=== PATIENT | female | born 1985 | race Caucasian/White ===

== ENCOUNTER 2017-08-29 09:43 | Emergency (ER) | payer BC ==
[2017-08-29] MEDS ORDERED: Ondansetron 4 MG/2 ML SDV IVPUSH ONE (09:53)
[2017-08-29] MEDS ORDERED: Sodium Chloride 0.9% 1,000 ML IV ONE (09:53)
[2017-08-29] MEDS ORDERED: Ketorolac 30 MG/ML SDV IVPUSH ONE (09:53)
--- NOTE | 2017-08-29 09:53 | EDM.PDOC ---
ED HPI GENERAL MEDICAL PROBLEM - General Chief Complaint: Abdominal Pain Stated Complaint: abdominal pain Time Seen by Provider: 08/29/17 09:53 Source of Information: Reports: Patient - History of Present Illness INITIAL COMMENTS - FREE TEXT/NARRATIVE: HISTORY AND PHYSICAL: History of present illness: []Patient presents with colicky abdominal pain that began this morning no fever nausea vomiting chills sweats she has had 1 bowel movement earlier today she states was slightly constipated no chest pain shortness breath headache dizziness palpitation no bowel or urine symptoms Previous cholecystectomy Review of systems: As per history of present illness and below otherwise all systems reviewed and negative. Past medical history: As per history of present illness and as reviewed below otherwise noncontributory. Surgical history: As per history of present illness and as reviewed below otherwise noncontributory. Social history: No reported history of drug or alcohol abuse. Family history: As per history of present illness and as reviewed below otherwise noncontributory. Physical exam: HEENT: Atraumatic, normocephalic, pupils reactive, negative for conjunctival pallor or scleral icterus, mucous membranes moist, throat clear, neck supple, nontender, trachea midline. Lungs: Clear to auscultation, breath sounds equal bilaterally, chest nontender. Heart: S1S2, regular, negative for clicks, rubs, or JVD. Abdomen: Soft, nondistended, nontender. Negative for masses or hepatosplenomegaly. Negative for costovertebral tenderness. Pelvis: Stable nontender. Genitourinary: Deferred. Rectal: Deferred. Extremities: Atraumatic, negative for cords or calf pain. Neurovascular unremarkable. Neuro: Awake, alert, oriented. Cranial nerves II through XII unremarkable. Cerebellum unremarkable. Motor and sensory unremarkable throughout. Exam nonfocal. Diagnostics: []Lab as below Flat and upright Therapeutics: []1 L normal saline Toradol 30 mg IV Zofran 8 mg IV Reglan 10 mg IV Simethicone 120 mg chewable Impression: []Colicky abdominal pain Definitive disposition and diagnosis as appropriate pending reevaluation and review of above. Lower Abdominal Pain Score (Numeric/FACES): 7 - Related Data Allergies Allergy/AdvReac Type Severity Reaction Status Date / Time latex Allergy Rash Verified 05/18/16 22:44 Home Meds: Home Meds Orphenadrine [Norflex] 100 mg PO PRN 08/29/17 [History] Past Medical History HEENT History: Reports: Impaired Vision Other HEENT History: stated 8 surgeries on ears Cardiovascular History: Reports: None Respiratory History: Reports: None Gastrointestinal History: Reports: None Genitourinary History: Reports: Renal Calculus Neurological History: Reports: Migraines Psychiatric History: Reports: None - Infectious Disease History Infectious Disease History: Reports: Chicken Pox - Past Surgical History HEENT Surgical History: Reports: Naso-Sinus Surgery GI Surgical History: Reports: Cholecystectomy, Hernia, Abdominal, Hernia Repair/ Other Social & Family History - Family History Family Medical History: Noncontributory - Tobacco Use Smoking Status *Q: Never Smoker Second Hand Smoke Exposure: No - Caffeine Use Caffeine Use: Reports: Coffee Caffeine Use Comment: 1/day - Alcohol Use Days Per Week of Alcohol Use: 1 - Recreational Drug Use Recreational Drug Use: No Drug Use in Last 12 Months: Yes ED ROS GENERAL - Review of Systems Review Of Systems: ROS reveals no pertinent complaints other than HPI. ED EXAM, GENERAL - Physical Exam Exam: See Below Course - Vital Signs Last Recorded V/S: Last Vital Signs Temp 36.9 C 08/29/17 10:02 Pulse 99 08/29/17 10:02 Resp 20 08/29/17 10:02 BP 137/94 H 08/29/17 10:02 Pulse Ox 99 08/29/17 10:02 - Orders/Labs/Meds Orders: Active Orders 24 hr Category Date Time Status CULTURE URINE [RM] Stat Lab 08/29/17 10:55 Ordered Labs: Laboratory Tests 08/29/17 08/29/17 08/29/17 Range/Units 09:59 09:59 10:13 WBC 7.64 (4.0-11.0) K/uL RBC 5.14 (4.30-5.90) M/uL Hgb 15.0 (12.0-16.0) g/dL Hct 44.2 (36.0-46.0) % MCV 86.0 (80.0-98.0) fL MCH 29.2 (27.0-32.0) pg MCHC 33.9 (31.0-37.0) g/dL RDW Std Deviation 41.4 (28.0-62.0) fl RDW Coeff of Farhana 13 (11.0-15.0) % Plt Count 285 (150-400) K/uL MPV 8.90 (7.40-12.00) fL Neut % (Auto) 56.5 (48.0-80.0) % Lymph % (Auto) 32.7 (16.0-40.0) % [place] % (Auto) 8.0 (0.0-15.0) % Eos % (Auto) 2.5 (0.0-7.0) % Baso % (Auto) 0.3 (0.0-1.5) % Neut # (Auto) 4.3 (1.4-5.7) K/uL Lymph # (Auto) 2.5 H (0.6-2.4) K/uL [place] # (Auto) 0.6 (0.0-0.8) K/uL Eos # (Auto) 0.2 (0.0-0.7) K/uL Baso # (Auto) 0.0 (0.0-0.1) K/uL Nucleated RBC % 0.0 /100WBC Nucleated RBCs # 0 K/uL Sodium 138 (136-146) mmol/L Potassium 3.9 (3.5-5.1) mmol/L Chloride 107 (98-110) mmol/L Carbon Dioxide 22 (21-31) mmol/L BUN 12 (6.0-23.0) mg/dL Creatinine 0.7 (0.6-1.5) mg/dL Est Cr Clr Drug Dosing 101.90 mL/min Estimated GFR (MDRD) > 60.0 ml/min Glucose 80 (60-110) mg/dL Calcium 9.5 (8.8-10.8) mg/dL Total Bilirubin 0.2 (0.1-1.5) mg/dL AST 20 (5-40) IU/L ALT 28 (8-54) IU/L Alkaline Phosphatase 66 (40-150) Total Protein 8.3 H (6.0-8.0) g/dL Albumin 4.4 (3.5-5.0) g/dL Globulin 3.9 H (2.0-3.5) g/dL Albumin/Globulin Ratio 1.1 L (1.3-2.8) Amylase 55 (10-90) U/L Lipase 34 (7-80) U/L Urine Color Urine Appearance Urine pH (5.0-8.0) Ur Specific [place] (1.001-1.035) Urine Protein (NEGATIVE) mg/dL Urine Glucose (UA) (NEGATIVE) mg/dL Urine Ketones (NEGATIVE) mg/dL Urine Occult Blood (NEGATIVE) Urine Nitrite (NEGATIVE) Urine Bilirubin (NEGATIVE) Urine Urobilinogen (<2.0) EU/dL Ur Leukocyte Esterase (NEGATIVE) Urine RBC (0-2/HPF) Urine WBC (0-5/HPF) Ur Epithelial Cells (NONE-FEW) Urine Bacteria (NEGATIVE) Urine HCG, Qual NEGATIVE (NEGATIVE) 08/29/17 Range/Units 10:13 WBC (4.0-11.0) K/uL RBC (4.30-5.90) M/uL Hgb (12.0-16.0) g/dL Hct (36.0-46.0) % MCV (80.0-98.0) fL MCH (27.0-32.0) pg MCHC (31.0-37.0) g/dL RDW Std Deviation (28.0-62.0) fl RDW Coeff of Farhana (11.0-15.0) % Plt Count (150-400) K/uL MPV (7.40-12.00) fL Neut % (Auto) (48.0-80.0) % Lymph % (Auto) (16.0-40.0) % [place] % (Auto) (0.0-15.0) % Eos % (Auto) (0.0-7.0) % Baso % (Auto) (0.0-1.5) % Neut # (Auto) (1.4-5.7) K/uL Lymph # (Auto) (0.6-2.4) K/uL [place] # (Auto) (0.0-0.8) K/uL Eos # (Auto) (0.0-0.7) K/uL Baso # (Auto) (0.0-0.1) K/uL Nucleated RBC % /100WBC Nucleated RBCs # K/uL Sodium (136-146) mmol/L Potassium (3.5-5.1) mmol/L Chloride (98-110) mmol/L Carbon Dioxide (21-31) mmol/L BUN (6.0-23.0) mg/dL Creatinine (0.6-1.5) mg/dL Est Cr Clr Drug Dosing mL/min Estimated GFR (MDRD) ml/min Glucose (60-110) mg/dL Calcium (8.8-10.8) mg/dL Total Bilirubin (0.1-1.5) mg/dL AST (5-40) IU/L ALT (8-54) IU/L Alkaline Phosphatase (40-150) Total Protein (6.0-8.0) g/dL Albumin (3.5-5.0) g/dL Globulin (2.0-3.5) g/dL Albumin/Globulin Ratio (1.3-2.8) Amylase (10-90) U/L Lipase (7-80) U/L Urine Color YELLOW Urine Appearance CLEAR Urine pH 6.0 (5.0-8.0) Ur Specific [place] <= 1.005 (1.001-1.035) Urine Protein NEGATIVE (NEGATIVE) mg/dL Urine Glucose (UA) NEGATIVE (NEGATIVE) mg/dL Urine Ketones NEGATIVE (NEGATIVE) mg/dL Urine Occult Blood TRACE-LYSED (NEGATIVE) Urine Nitrite NEGATIVE (NEGATIVE) Urine Bilirubin NEGATIVE (NEGATIVE) Urine Urobilinogen 0.2 (<2.0) EU/dL Ur Leukocyte Esterase NEGATIVE (NEGATIVE) Urine RBC 0-1 (0-2/HPF) Urine WBC 0-1 (0-5/HPF) Ur Epithelial Cells MODERATE (NONE-FEW) Urine Bacteria RARE (NEGATIVE) Urine HCG, Qual (NEGATIVE) Meds: Medications Discontinued Medications Generic Name Dose Route Start Last Admin Trade Name Freq PRN Reason Stop Dose Admin Sodium Chloride 1,000 mls @ 999 mls/hr 08/29/17 09:53 08/29/17 10:20 Normal Saline IV 08/29/17 10:53 999 mls/hr STAT ONE Administration Ketorolac Tromethamine 30 mg 08/29/17 09:53 08/29/17 10:15 Toradol IVPUSH 08/29/17 09:54 30 mg ONETIME ONE Administration Metoclopramide HCl 10 mg 08/29/17 11:42 Reglan IV 08/29/17 11:43 ONETIME ONE Ondansetron HCl 8 mg 08/29/17 09:53 08/29/17 10:14 Zofran IVPUSH 08/29/17 09:54 8 mg ONETIME ONE Administration Simethicone 160 mg 08/29/17 11:42 Simethicone PO 08/29/17 11:43 ONETIME ONE Departure - Departure Time of Disposition: 12:01 Disposition: Home, Self-Care 01 Condition: Good Clinical Impression: Abdominal pain Qualifiers: Abdominal location: left lower quadrant Qualified Code(s): R10.32 - Left lower quadrant pain - Discharge Information Referrals: Rachel Novak PA [Primary Care Provider] - Forms: ED Department Discharge Additional Instructions: Medication as prescribed Return if symptoms persist or worsen or fever vomiting chills sweats despite treatment Follow-up with primary care in 2 weeks sooner as needed clear liquid diet until symptoms resolve MiraLAX 17 g packet daily to clear bowels [facility] [address] [place] [id number] The following information is given to patients seen in the emergency department who are being discharged to home. This information is to outline your options for follow-up care. We provide all patients seen in our emergency department with a follow-up referral. The need for follow-up, as well as the timing and circumstances, are variable depending upon the specifics of your emergency department visit. If you don't have a primary care physician on staff, we will provide you with a referral. We always advise you to contact your personal physician following an emergency department visit to inform them of the circumstance of the visit and for follow-up with them and/or the need for any referrals to a consulting specialist. The emergency department will also refer you to a specialist when appropriate. This referral assures that you have the opportunity for follow-up care with a specialist. All of these measure are taken in an effort to provide you with optimal care, which includes your follow-up. Under all circumstances we always encourage you to contact your private physician who remains a resource for coordinating your care. When calling for follow-up care, please make the office aware that this follow-up is from your recent emergency room visit. If for any reason you are refused follow-up, please contact the [facility] emergency department at and asked to speak to the emergency department charge nurse. - My Orders Last 24 Hours: My Active Orders 08/29/17 10:55 CULTURE URINE [RM] Stat - Assessment/Plan Last 24 Hours: My Active Orders 08/29/17 10:55 CULTURE URINE [] Stat
[2017-08-29 10:37] LABS: CHLORIDE,CL 107 mmol/L (98-110); SODIUM,NA 138 mmol/L (136-146)
--- NOTE | 2017-08-29 11:22 | CR ---
EXAMINATION: Abdomen HISTORY: Pain COMPARISON: CT dated 07/13/2016 TECHNIQUE: AP and upright views of the abdomen FINDINGS: There is a moderate amount of stool and gas within the colon to the sigmoid region. No dila marina loops of small bowel. No organomegaly. No abnormal calcifications project over the kidneys. Cyste ctomy clips are noted. The visualized osseous structures appear normal. IMPRESSION: 1. Nonobstructive bowel gas pattern.
[2017-08-29] MEDS ORDERED: Metoclopramide 10 MG/2 ML SDV IV ONE (11:42)
[2017-08-29] MEDS ORDERED: Simethicone 80 MG Tab.Chew PO ONE (11:42)
[2017-08-29 12:11] VITALS: BP 107/68
== END 2017-08-29 12:40 | disposition home or self-care (01) ==
LOC: MW.ED 09:43
DX: R10.32 Left lower quadrant pain (principal); R10.84 Generalized abdominal pain; Z87.442 Personal history of urinary calculi; Z90.49 Acquired absence of other specified parts of digestive tract; Z98.890 Other specified postprocedural states; Z91.040 Latex allergy status
CPT/HCPCS: 36415; 74020; 80053; 81001; 81025; 82150; 83690; 85025; 87086; 96361; 96374; 96375; 99284; A9270; J1885; J2405; J2765; J7040; 99282

== ENCOUNTER 2018-01-10 18:07 | Emergency (ER) | payer BC ==
[2018-01-10 19:16] LABS: CHLORIDE,CL 104 mmol/L (98-110); SODIUM,NA 138 mmol/L (136-146)
--- NOTE | 2018-01-10 19:39 | EDM.PDOC ---
ED HPI GENERAL MEDICAL PROBLEM - General Chief Complaint: Abdominal Pain Stated Complaint: ABD PAIN Time Seen by Provider: 01/10/18 19:04 - History of Present Illness INITIAL COMMENTS - FREE TEXT/NARRATIVE: HISTORY AND PHYSICAL: History of present illness: Patient 33-year-old white female presents with a concern of abdominal pain patient has history of irritable bowel syndrome. She's had no fever chills nausea vomiting she is concerned about possible urinary tract infection she's had some mild UTI type symptoms. She denies vaginal discharge or irregular bleeding states she's had a hysterectomy. Review of systems: As per history of present illness and below otherwise all systems reviewed and negative. Past medical history: As per history of present illness and as reviewed below otherwise noncontributory. Surgical history: As per history of present illness and as reviewed below otherwise noncontributory. Social history: No reported history of drug or alcohol abuse. Family history: As per history of present illness and as reviewed below otherwise noncontributory. Physical exam: HEENT: Atraumatic, normocephalic, pupils reactive, negative for conjunctival pallor or scleral icterus, mucous membranes moist, throat clear, neck supple, nontender, trachea midline. Lungs: Clear to auscultation, breath sounds equal bilaterally, chest nontender. Heart: S1S2, regular, negative for clicks, rubs, or JVD. Abdomen: Soft, nondistended, no localized tenderness. Negative for masses or hepatosplenomegaly. Negative for costovertebral tenderness. Pelvis: Stable nontender. Genitourinary: Deferred. Rectal: Deferred. Extremities: Atraumatic, negative for cords or calf pain. Neurovascular unremarkable. Neuro: Awake, alert, oriented. Cranial nerves II through XII unremarkable. Cerebellum unremarkable. Motor and sensory unremarkable throughout. Exam nonfocal. Diagnostics: CBC CMP UA urine culture and sensitivity Therapeutics: None Impression: #1 abdominal pain history of irritable bowel syndrome #2 rule out UTI Definitive disposition and diagnosis as appropriate pending reevaluation and review of above. Left Upper Abdominal Pain Score (Numeric/FACES): 6 - Related Data Allergies Allergy/AdvReac Type Severity Reaction Status Date / Time latex Allergy Rash Verified 01/10/18 18:36 Home Meds: Home Meds Orphenadrine [Norflex] 100 mg PO ASDIRECTED PRN 08/29/17 [History] Past Medical History HEENT History: Reports: Impaired Vision Other HEENT History: stated 8 surgeries on ears Cardiovascular History: Reports: None Respiratory History: Reports: None Gastrointestinal History: Reports: None Genitourinary History: Reports: Renal Calculus [employer] History: Reports: Other (See Below) Other OB/BYN History: hysterectomy Neurological History: Reports: Migraines Psychiatric History: Reports: None - Infectious Disease History Infectious Disease History: Reports: Chicken Pox - Past Surgical History HEENT Surgical History: Reports: Naso-Sinus Surgery GI Surgical History: Reports: Cholecystectomy, Hernia, Abdominal, Hernia Repair/ Other Other Musculoskeletal Surgeries/Procedures:: Wrist surgery, reconstructive facial surgery Social & Family History - Family History Family Medical History: Noncontributory - Tobacco Use Smoking Status *Q: Never Smoker Second Hand Smoke Exposure: No - Caffeine Use Caffeine Use: Reports: Coffee Caffeine Use Comment: 1/day - Alcohol Use Days Per Week of Alcohol Use: 1 Number of Drinks Per Day: 2 Total Drinks Per Week: 2 - Recreational Drug Use Recreational Drug Use: No Drug Use in Last 12 Months: Yes ED ROS GENERAL - Review of Systems Review Of Systems: ROS reveals no pertinent complaints other than HPI. ED EXAM, GENERAL - Physical Exam Exam: See Below (See dictation) Course - Vital Signs Last Recorded V/S: Last Vital Signs Temp 36.4 C 01/10/18 18:30 Pulse 103 H 01/10/18 18:30 Resp 18 01/10/18 18:30 BP 166/111 H 01/10/18 18:30 Pulse Ox 97 01/10/18 18:30 - Orders/Labs/Meds Orders: Active Orders 24 hr Category Date Time Status CULTURE URINE [RM] Stat Lab 01/10/18 19:30 Received Labs: Laboratory Tests 01/10/18 01/10/18 01/10/18 Range/Units 18:46 18:46 19:30 WBC 7.99 (4.0-11.0) K/uL RBC 4.63 (4.30-5.90) M/uL Hgb 13.3 (12.0-16.0) g/dL Hct 39.3 (36.0-46.0) % MCV 84.9 (80.0-98.0) fL MCH 28.7 (27.0-32.0) pg MCHC 33.8 (31.0-37.0) g/dL RDW Std Deviation 40.3 (28.0-62.0) fl RDW Coeff of Farhana 13 (11.0-15.0) % Plt Count 288 (150-400) K/uL MPV 8.80 (7.40-12.00) fL Neut % (Auto) 54.9 (48.0-80.0) % Lymph % (Auto) 33.3 (16.0-40.0) % [place] % (Auto) 9.5 (0.0-15.0) % Eos % (Auto) 2.0 (0.0-7.0) % Baso % (Auto) 0.3 (0.0-1.5) % Neut # (Auto) 4.4 (1.4-5.7) K/uL Lymph # (Auto) 2.7 H (0.6-2.4) K/uL [place] # (Auto) 0.8 (0.0-0.8) K/uL Eos # (Auto) 0.2 (0.0-0.7) K/uL Baso # (Auto) 0.0 (0.0-0.1) K/uL Nucleated RBC % 0.0 /100WBC Nucleated RBCs # 0 K/uL Sodium 138 (136-146) mmol/L Potassium 4.1 (3.5-5.1) mmol/L Chloride 104 (98-110) mmol/L Carbon Dioxide 23 (21-31) mmol/L BUN 13 (6.0-23.0) mg/dL Creatinine 0.7 (0.6-1.5) mg/dL Est Cr Clr Drug Dosing 105.01 mL/min Estimated GFR (MDRD) > 60.0 ml/min Glucose 86 (60-110) mg/dL Calcium 9.1 (8.8-10.8) mg/dL Total Bilirubin 0.3 (0.1-1.5) mg/dL AST 21 (5-40) IU/L ALT 25 (8-54) IU/L Alkaline Phosphatase 54 (40-150) Total Protein 7.2 (6.0-8.0) g/dL Albumin 4.1 (3.5-5.0) g/dL Globulin 3.1 (2.0-3.5) g/dL Albumin/Globulin Ratio 1.3 (1.3-2.8) Lipase 17 (7-80) U/L Urine Color YELLOW Urine Appearance CLEAR Urine pH 6.0 (5.0-8.0) Ur Specific [place] 1.010 (1.001-1.035) Urine Protein NEGATIVE (NEGATIVE) mg/dL Urine Glucose (UA) NEGATIVE (NEGATIVE) mg/dL Urine Ketones NEGATIVE (NEGATIVE) mg/dL Urine Occult Blood NEGATIVE (NEGATIVE) Urine Nitrite NEGATIVE (NEGATIVE) Urine Bilirubin NEGATIVE (NEGATIVE) Urine Urobilinogen 0.2 (<2.0) EU/dL Ur Leukocyte Esterase TRACE (NEGATIVE) Urine RBC 0-1 (0-2/HPF) Urine WBC 0-1 (0-5/HPF) Ur Epithelial Cells RARE (NONE-FEW) Urine Bacteria RARE (NEGATIVE) Departure - Departure Time of Disposition: 19:59 Disposition: Home, Self-Care 01 Condition: Good Clinical Impression: Irritable bowel syndrome - Discharge Information Referrals: PCP,None [Primary Care Provider] - Forms: ED Department Discharge Additional Instructions: The following information is given to patients seen in the emergency department who are being discharged to home. This information is to outline your options for follow-up care. We provide all patients seen in our emergency department with a follow-up referral. The need for follow-up, as well as the timing and circumstances, are variable depending upon the specifics of your emergency department visit. If you don't have a primary care physician on staff, we will provide you with a referral. We always advise you to contact your personal physician following an emergency department visit to inform them of the circumstance of the visit and for follow-up with them and/or the need for any referrals to a consulting specialist. The emergency department will also refer you to a specialist when appropriate. This referral assures that you have the opportunity for followup care with a specialist. All of these measure are taken in an effort to provide you with optimal care, which includes your followup. Under all circumstances we always encourage you to contact your private physician who remains a resource for coordinating your care. When calling for followup care, please make the office aware that this follow-up is from your recent emergency room visit. If for any reason you are refused follow-up, please contact the [facility] emergency department at and asked to speak to the emergency department charge nurse. Continue current meds follow private medical doctor 1-2 days return as needed as discussed - My Orders Last 24 Hours: My Active Orders 01/10/18 19:30 CULTURE URINE [] Stat - Assessment/Plan Last 24 Hours: My Active Orders 01/10/18 19:30 CULTURE URINE [] Stat
[2018-01-10 20:18] VITALS: BP 147/97
== END 2018-01-10 20:14 | disposition home or self-care (01) ==
LOC: MW.ED 18:07
DX: K58.9 Irritable bowel syndrome, unspecified (principal); Z91.040 Latex allergy status
CPT/HCPCS: 36415; 80053; 81001; 83690; 85025; 87086; 99283

== ENCOUNTER 2018-11-29 11:28 | Emergency (ER) | payer BC ==
[2018-11-29] MEDS ORDERED: Ondansetron 4 MG Tab.DIS PO ONE (11:39)
[2018-11-29] MEDS ORDERED: HYDROmorphone 2 MG/ML SDV IM ONE (11:39)
--- NOTE | 2018-11-29 11:40 | EDM.PDOC ---
ED HPI GENERAL MEDICAL PROBLEM - General Chief Complaint: Headache Stated Complaint: MIGRAINE Time Seen by Provider: 11/29/18 11:29 Source of Information: Reports: Patient History Limitations: Reports: No Limitations - History of Present Illness INITIAL COMMENTS - FREE TEXT/NARRATIVE: History of present illness: []Patient started having difficulty urinating this morning as well as left flank pain. She tried to urinate several times but could not. She denies any blood in her urine. She has not had any fevers, chills, nausea, vomiting or abdominal pain. Patient has had a hysterectomy in the past and has had several UTIs that she states feels similar to this. Review of systems: As per history of present illness and below otherwise all systems reviewed and negative. Past medical history: As per history of present illness and as reviewed below otherwise noncontributory. Surgical history: As per history of present illness and as reviewed below otherwise noncontributory. Social history: No reported history of drug or alcohol abuse. Family history: As per history of present illness and as reviewed below otherwise noncontributory. Physical exam: General: Well developed, well nourished in NAD HEENT: Atraumatic, normocephalic, pupils reactive, negative for conjunctival pallor or scleral icterus, mucous membranes moist, throat clear, neck supple, no rigidity nontender, trachea midline. No sinus tenderness to palpation Lungs: Clear to auscultation, breath sounds equal bilaterally, chest nontender. Heart: S1S2, regular, negative for clicks, rubs, or JVD. Abdomen: NABS, Soft, nondistended, nontender. Negative for masses or hepatosplenomegaly. Negative for costovertebral tenderness. Pelvis: Stable nontender. Genitourinary: Deferred. Rectal: Deferred. Extremities: Atraumatic, negative for cords or calf pain. Neurovascular unremarkable. Neuro: Awake, alert, oriented. Cranial nerves II through XII unremarkable. Cerebellum unremarkable. Motor and sensory unremarkable throughout. Exam nonfocal. Skin:warm and dry Diagnostics: CT head negative Therapeutics: Dilaudid Zofran, Toradol ED Course: Improved Impression: Migraine headache Prescriptions: None Plan: Follow-up with primary care Definitive disposition and diagnosis as appropriate pending reevaluation and review of above. 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 (See Below) Other SAFETY LEADER History: hysterectomy Neurological History: Reports: Migraines Psychiatric History: Reports: None - Infectious Disease History Infectious Disease History: Reports: Chicken Pox - Past Surgical History HEENT Surgical History: Reports: Naso-Sinus Surgery GI Surgical History: Reports: Cholecystectomy, Hernia, Abdominal, Hernia Repair/ Other Other Musculoskeletal Surgeries/Procedures:: Wrist surgery, reconstructive facial surgery Social & Family History - Family History Family Medical History: Noncontributory - Caffeine Use Caffeine Use: Reports: Coffee Caffeine Use Comment: 1/day ED ROS GENERAL - Review of Systems Review Of Systems: ROS reveals no pertinent complaints other than HPI. - Physical Exam Exam: See Below (See history of present illness) Course - Vital Signs Last Recorded V/S: Last Vital Signs Temp 96.9 F 11/29/18 11:37 Pulse 103 H 11/29/18 12:55 Resp 18 11/29/18 12:55 BP 145/90 H 11/29/18 12:55 Pulse Ox 97 11/29/18 12:55 - Orders/Labs/Meds Orders: Active Orders 24 hr Category Date Time Status Head wo Cont [CT] Stat Exams 11/29/18 11:40 Taken Meds: Medications Discontinued Medications Generic Name Dose Route Start Last Admin Trade Name Freq PRN Reason Stop Dose Admin Hydromorphone HCl 1 mg 11/29/18 11:39 11/29/18 12:09 Dilaudid IM 11/29/18 11:40 Not Given ONETIME ONE Hydromorphone HCl 1 mg 11/29/18 12:06 11/29/18 12:07 Dilaudid IM 11/29/18 12:07 1 mg ONETIME ONE Administration Ketorolac Tromethamine 60 mg 11/29/18 12:48 Toradol IM 11/29/18 12:49 ONETIME ONE Ondansetron HCl 4 mg 11/29/18 11:39 11/29/18 12:08 Zofran Odt PO 11/29/18 11:40 4 mg ONETIME ONE Administration Departure - Departure Time of Disposition: 13:10 Disposition: Home, Self-Care 01 Condition: Good Clinical Impression: Migraine headache Qualifiers: Migraine type: unspecified Status migrainosus presence: without status migrainosus Intractability: not intractable Qualified Code(s): G43.909 - Migraine, unspecified, not intractable, without status migrainosus - Discharge Information *PRESCRIPTION DRUG MONITORING PROGRAM REVIEWED*: No *COPY OF PRESCRIPTION DRUG MONITORING REPORT IN PATIENT NETTE: No Referrals: PCP,None [Primary Care Provider] - Forms: ED Department Discharge Additional Instructions: The following information is given to patients seen in the emergency department who are being discharged to home. This information is to outline your options for follow-up care. We provide all patients seen in our emergency department with a follow-up referral. The need for follow-up, as well as the timing and circumstances, are variable depending upon the specifics of your emergency department visit. If you don't have a primary care physician on staff, we will provide you with a referral. We always advise you to contact your personal physician following an emergency department visit to inform them of the circumstance of the visit and for follow-up with them and/or the need for any referrals to a consulting specialist. The emergency department will also refer you to a specialist when appropriate. This referral assures that you have the opportunity for follow-up care with a specialist. All of these measure are taken in an effort to provide you with optimal care, which includes your follow-up. Under all circumstances we always encourage you to contact your private physician who remains a resource for coordinating your care. When calling for follow-up care, please make the office aware that this follow-up is from your recent emergency room visit. If for any reason you are refused follow-up, please contact the [facility] Emergency Department at and asked to speak to the emergency department charge nurse. [facility] [address] [place] [id number] - My Orders Last 24 Hours: My Active Orders 11/29/18 11:40 Head wo Cont [CT] Stat - Assessment/Plan Last 24 Hours: My Active Orders 11/29/18 11:40 Head wo Cont [CT] Stat
[2018-11-29] MEDS ORDERED: Ondansetron 4 MG Tab.DIS ONE (12:03)
[2018-11-29] MEDS ORDERED: HYDROmorphone 1 MG/ML Syringe ONE (12:04)
[2018-11-29] MEDS ORDERED: HYDROmorphone 1 MG/ML Syringe IM ONE (12:06)
[2018-11-29] MEDS ORDERED: Ketorolac 60 MG/2 ML SDV IM ONE (12:48)
[2018-11-29] MEDS ORDERED: Ketorolac 60 MG/2 ML SDV ONE (13:05)
[2018-11-29 13:36] VITALS: BP 133/85
--- NOTE | 2018-11-30 08:32 | CT ---
INDICATION: Migraine headache. Severe pain. COMPARISON: None available. TECHNIQUE: CT examination of the head was performed with 3 mm thick axial sections without intravenous contrast. Images were obtained from the vertex of the skull through the skull base, and I examined the images with the brain and bone windows. Please note that all CT scans at this facility use dose modulation, iterative reconstruction, and/or weight-based dosing when appropriate to reduce radiation dose to as low as reasonably achievable. FINDINGS: : The brain is normal in appearance for the patient`s age on today`s study, with no sign of mass lesion, mass effect, hemorrhage, or edema. The ventricles and sulci are normal in appearance for the patient`s age. The visualized portions of the orbits are normal in appearance. The visualized portions of the paranasal sinuses and mastoids are clear. The osseous structures are normal in their appearance with no sign of abnormality in the skull base or calvarium. IMPRESSION: NORMAL NONCONTRAST CT OF THE HEAD FOR THE PATIENT`S AGE. NOTHING SEEN TO CORRELATE WITH THE PATIENT`S SEVERE HEADACHE. Please note that all CT scans at this facility use dose modulation, iterative reconstruction, and/or weight-based dosing when appropriate to reduce radiation dose to as low as reasonably achievable. Dictated by Kennedy Izaguirre MD @ Nov 29 2018 12:38PM Signed by Dr. Kennedy Izaguirre @ Nov 29 2018 12:41PM
== END 2018-11-29 13:32 | disposition home or self-care (01) ==
LOC: MW.ED 11:28
DX: G43.909 Migraine, unspecified, not intractable, without status migrainosus (principal); Z91.040 Latex allergy status
CPT/HCPCS: 70450; 96372; 99284; A9270; J1170; J1885

== ENCOUNTER 2019-07-08 12:42 | Emergency (ER) | payer BC ==
[2019-07-08] MEDS ORDERED: diphenhydrAMINE 50 MG/ML SDV IVPUSH ONE (12:51)
[2019-07-08] MEDS ORDERED: Sodium Chloride 0.9% 1,000 ML IV ONE (12:51)
[2019-07-08] MEDS ORDERED: Metoclopramide 10 MG/2 ML SDV IV ONE (12:51)
[2019-07-08] MEDS ORDERED: Ondansetron 4 MG/2 ML SDV IVPUSH ONE (12:51)
[2019-07-08] MEDS ORDERED: Ketorolac 30 MG/ML SDV IVPUSH ONE (12:51)
--- NOTE | 2019-07-08 13:01 | EDM.PDOC ---
ED HPI GENERAL MEDICAL PROBLEM - General Chief Complaint: Headache Stated Complaint: MIGRAINE Time Seen by Provider: 07/08/19 12:43 Source of Information: Reports: Patient History Limitations: Reports: No Limitations - History of Present Illness INITIAL COMMENTS - FREE TEXT/NARRATIVE: HISTORY AND PHYSICAL: History of present illness: Patient is a 34-year-old female presents to the ED today with concern for migraine 4 days. Patient states she has a history of chronic migraines and that her migraine is not unusual for her. She rates it currently a 7 out of 10. She does express photophobia and throbbing in nature which is typical of her migraines. Patient states she's taken her rescue medications at home but it just hasn't quite worked for her. Patient states she's come to the ED and received a "cocktail" before which has improved her symptoms in the past. Patient states she does follow with her neurologist for her migraine treatments. Patient denies any new symptoms from her typical migraine or any other symptoms or concerns at this time. Patient denies any other health history. Patient denies fever, chills, chest pain, shortness of breath, or cough. Denies headache, neck stiff ness, change in vision, syncope, or near syncope. Denies nausea, vomiting, abdominal pain, diarrhea, constipation, or dysuria. Has not noted any blood in urine or stool. Patient has been eating and drinking appropriately. Review of systems: As per history of present illness and below otherwise all systems reviewed and negative. Past medical history: As per history of present illness and as reviewed below otherwise noncontributory. Surgical history: As per history of present illness and as reviewed below otherwise noncontributory. Social history: See social history for further information Family history: As per history of present illness and as reviewed below otherwise noncontributory. Physical exam: General: Patient is alert, oriented, and in no acute distress. Patient sitting comfortably on exam table. HEENT: Atraumatic, normocephalic, pupils equal and reactive bilaterally, negative for conjunctival pallor or scleral icterus, mucous membranes moist, TMs normal bilaterally, throat clear, neck supple, nontender, trachea midline. No drooling or trismus noted. No meningeal signs. No hot potato voice noted. Lungs: Clear to auscultation, breath sounds equal bilaterally, chest nontender. Heart: S1S2, regular rate and rhythm without overt murmur Abdomen: Soft, nondistended, nontender. Negative for masses or hepatosplenomegaly. Negative for costovertebral tenderness. Pelvis: Stable nontender. Genitourinary: Deferred. Rectal: Deferred. Skin: Intact, warm, dry. No lesions or rashes noted. Extremities: Atraumatic, negative for cords or calf pain. Neurovascular unremarkable. Neuro: Awake, alert, oriented. Cranial nerves II through XII unremarkable. Cerebellum unremarkable. Motor and sensory unremarkable throughout. Exam nonfocal. Notes: Discussed the importance for follow-up with a primary care provider and her neurologist in regards to her migraines. Voices understanding and is agreeable to plan of care. Denies any further questions or concerns at this time. Diagnostics: None Therapeutics: Saline, Zofran, Toradol, Reglan, Benadryl Prescription: None Impression: Migraine headache Plan: 1. You can alternate ibuprofen and Tylenol as directed for pain and discomfort. Encourage small but frequent sips of fluid to prevent dehydration. 2. Follow-up with a primary care provider and your neurologist as discussed and as scheduled. Return to the ED as needed and as discussed. Definitive disposition and diagnosis as appropriate pending reevaluation and review of above. 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: Other (See Below) Other POWERHOUSE ENGINEER History: hysterectomy Musculoskeletal History: Reports: None Neurological History: Reports: Migraines Psychiatric History: Reports: None Endocrine/Metabolic History: Reports: None Hematologic History: Reports: None Immunologic History: Reports: None Oncologic (Cancer) History: Reports: None Dermatologic History: Reports: None - Infectious Disease History Infectious Disease History: Reports: Chicken Pox - Past Surgical History HEENT Surgical History: Reports: Naso-Sinus Surgery Cardiovascular Surgical History: Reports: None Respiratory Surgical History: Reports: None GI Surgical History: Reports: Cholecystectomy, Hernia, Abdominal, Hernia Repair/ Other Female Surgical History: Reports: None Endocrine Surgical History: Reports: None Neurological Surgical History: Reports: None Musculoskeletal Surgical History: Reports: Other (See Below) Other Musculoskeletal Surgeries/Procedures:: Wrist surgery, reconstructive facial surgery Oncologic Surgical History: Reports: None Dermatological Surgical History: Reports: None Social & Family History - Family History Family Medical History: Noncontributory - Tobacco Use Smoking Status *Q: Never Smoker Second Hand Smoke Exposure: No - Caffeine Use Caffeine Use: Reports: Coffee Caffeine Use Comment: 1/day - Recreational Drug Use Recreational Drug Use: No ED ROS GENERAL - Review of Systems Review Of Systems: ROS reveals no pertinent complaints other than HPI. ED EXAM, GENERAL - Physical Exam Exam: See Below (see dictation) Course - Vital Signs Last Recorded V/S: Last Vital Signs Temp 36.4 C 07/08/19 12:47 Pulse 96 07/08/19 12:47 Resp 16 07/08/19 12:47 BP 155/108 H 07/08/19 12:47 Pulse Ox 98 07/08/19 12:47 - Orders/Labs/Meds Orders: Active Orders 24 hr Category Date Time Status Sodium Chloride 0.9% [Normal Saline] 1,000 ml Med 07/08/19 12:51 Active IV STAT Medication Orders Sodium Chloride (Normal Saline) 1,000 mls @ 999 mls/hr IV STAT ONE Stop: 07/08/19 13:51 Meds: Medications Generic Name Dose Route Start Last Admin Trade Name Freq PRN Reason Stop Dose Admin Sodium Chloride 1,000 mls @ 999 mls/hr 07/08/19 12:51 Normal Saline IV 07/08/19 13:51 STAT ONE Discontinued Medications Generic Name Dose Route Start Last Admin Trade Name Freq PRN Reason Stop Dose Admin Diphenhydramine HCl 50 mg 07/08/19 12:51 Benadryl IVPUSH 07/08/19 12:52 ONETIME ONE Ketorolac Tromethamine 30 mg 07/08/19 12:51 Toradol IVPUSH 07/08/19 12:52 ONETIME ONE Metoclopramide HCl 10 mg 07/08/19 12:51 Reglan IV 07/08/19 12:52 ONETIME ONE Ondansetron HCl 4 mg 07/08/19 12:51 Zofran IVPUSH 07/08/19 12:52 ONETIME ONE Departure - Departure Time of Disposition: 13:01 Disposition: Home, Self-Care 01 Clinical Impression: Migraine Qualifiers: Migraine type: unspecified Status migrainosus presence: without status migrainosus Intractability: not intractable Qualified Code(s): G43.909 - Migraine, unspecified, not intractable, without status migrainosus - Discharge Information Referrals: PCP,None [Primary Care Provider] - Additional Instructions: The following information is given to patients seen in the emergency department who are being discharged to home. This information is to outline your options for follow-up care. We provide all patients seen in our emergency department with a follow-up referral. The need for follow-up, as well as the timing and circumstances, are variable depending upon the specifics of your emergency department visit. If you don't have a primary care physician on staff, we will provide you with a referral. We always advise you to contact your personal physician following an emergency department visit to inform them of the circumstance of the visit and for follow-up with them and/or the need for any referrals to a consulting specialist. The emergency department will also refer you to a specialist when appropriate. This referral assures that you have the opportunity for follow-up care with a specialist. All of these measure are taken in an effort to provide you with optimal care, which includes your follow-up. Under all circumstances we always encourage you to contact your private physician who remains a resource for coordinating your care. When calling for follow-up care, please make the office aware that this follow-up is from your recent emergency room visit. If for any reason you are refused follow-up, please contact the [facility] Emergency Department at and asked to speak to the emergency department charge nurse. [facility] [address] [place] [address] [id number] [address] [id number] 1. You can alternate ibuprofen and Tylenol as directed for pain and discomfort. Encourage small but frequent sips of fluid to prevent dehydration. 2. Follow-up with a primary care provider and your neurologist as discussed and as scheduled. Return to the ED as needed and as discussed. - My Orders Last 24 Hours: My Active Orders 07/08/19 12:51 Sodium Chloride 0.9% [Normal Saline] 1,000 ml IV STAT - Assessment/Plan Last 24 Hours: My Active Orders 07/08/19 12:51 Sodium Chloride 0.9% [Normal Saline] 1,000 ml IV STAT
[2019-07-08 13:59] VITALS: BP 132/85
== END 2019-07-08 13:59 | disposition home or self-care (01) ==
LOC: MW.ED 12:42
DX: G43.909 Migraine, unspecified, not intractable, without status migrainosus (principal); Z91.040 Latex allergy status; Z87.442 Personal history of urinary calculi
CPT/HCPCS: 96361; 96374; 96375; 99283; J1200; J1885; J2405; J2765; J7040

== ENCOUNTER 2019-12-18 16:12 | Emergency (ER) | payer BC ==
[2019-12-18] MEDS ORDERED: Ondansetron 4 MG/2 ML SDV IVPUSH ONE (17:06)
[2019-12-18] MEDS ORDERED: Sodium Chloride 0.9% 1,000 ML IV ONE (17:06)
--- NOTE | 2019-12-18 17:17 | EDM.PDOC ---
ED HPI GENERAL MEDICAL PROBLEM - General Chief Complaint: Abdominal Pain Stated Complaint: STOMACK PAIN Time Seen by Provider: 12/18/19 16:21 Source of Information: Reports: Patient History Limitations: Reports: No Limitations - History of Present Illness INITIAL COMMENTS - FREE TEXT/NARRATIVE: HISTORY AND PHYSICAL: History of present illness: Patient is a 34-year-old female who presents to the ED today with concern of generalized weakness. Patient states she had a Mackenzie-en-Y gastric bypass on November 12 done at [facility] in [place]. Patient states that she had some allergic reactions to the medication following the surgery so was in the hospital for 5 days but denies any complications of the surgery itself. Patient states that since then she is had some issues with eating and drinking and does feel nauseous. Patient states that over the course of the past several days she feels weak and has not wanted to eat much food following the surgery. Patient does state she has some abdominal discomfort but she does not describe it as pain. Patient states she has eaten 1 protein shake to day which is in accordance to her meal plan following surgery. Patient states she does have a liver lesion which has been known since the surgery which she is following with her primary care provider. Patient denies fever, chills, chest pain, shortness of breath, or cough. Denies headache, neck stiff ness, change in vision, syncope, or near syncope. Denies nausea, vomiting, abdominal pain, diarrhea, constipation, or dysuria. Has not noted any blood in urine or stool. Review of systems: As per history of present illness and below otherwise all systems reviewed and negative. Past medical history: As per history of present illness and as reviewed below otherwise noncontributory. Surgical history: As per history of present illness and as reviewed below otherwise noncontributory. Social history: See social history for further information Family history: As per history of present illness and as reviewed below otherwise noncontributory. Physical exam: General: Patient is alert, oriented, and in no acute distress. Patient sitting comfortably on exam table but tired appearing. HEENT: Atraumatic, normocephalic, pupils equal and reactive bilaterally, negative for conjunctival pallor or scleral icterus, mucous membranes dry, TMs normal bilaterally, throat clear, neck supple, nontender, trachea midline. No drooling or trismus noted. No meningeal signs. No hot potato voice noted. Lungs: Clear to auscultation, breath sounds equal bilaterally, chest nontender. Heart: S1S2, regular rate and rhythm without overt murmur Abdomen: Incisions consistent with surgical history. No erythema or drainage of incision sites. Well healed. Soft, nondistended, nontender. Negative for masses or hepatosplenomegaly. Negative for costovertebral tenderness. Pelvis: Stable nontender. Genitourinary: Deferred. Rectal: Deferred. Skin: Intact, warm, dry. No lesions or rashes noted. Extremities: Atraumatic, negative for cords or calf pain. Neurovascular unremarkable. Neuro: Awake, alert, oriented. Cranial nerves II through XII unremarkable. Cerebellum unremarkable. Motor and sensory unremarkable throughout. Exam nonfocal. Notes: Patient able to tolerate po intake in the ED today. Discussed importance for follow-up with her primary care provider and the surgeon who performed her surgery. Voices understanding and is agreeable to plan of care. Denies any further questions or concerns at this time. Diagnostics: CBC, CMP, UA, Uhcg, Lipase, Abd/Pelvic CT Therapeutics: NS, Zofran Prescription: None Impression: Generalized weakness Dehydration, mild Plan: 1. Encourage small but frequent sips of fluid to prevent dehydration. 2. Follow-up with your primary care provider as well as the surgeon of your surgery as discussed. 3. Return to the ED as needed and as discussed. Definitive disposition and diagnosis as appropriate pending reevaluation and review of above. Abdominal Pain Score (Numeric/FACES): 4 - Related Data Allergies Allergy/AdvReac Type Severity Reaction Status Date / Time latex Allergy Rash Verified 12/18/19 16:33 Home Meds: Home Meds Ascorbic Acid [Vitamin C] 1,000 mg PO ASDIRECTED 12/18/19 [History] Metoclopramide [Reglan] 5 mg PO BEDTIME 12/18/19 [History] Omeprazole 20 mg PO ONETIME 12/18/19 [History] Past Medical History HEENT History: Reports: Impaired Vision Other HEENT History: stated 8 surgeries on ears Cardiovascular History: Reports: None Respiratory History: Reports: None Gastrointestinal History: Reports: None Genitourinary History: Reports: Renal Calculus CORE BAKER History: Reports: Other (See Below) Other CORE BAKER History: hysterectomy Musculoskeletal History: Reports: None Neurological History: Reports: Migraines Psychiatric History: Reports: None Endocrine/Metabolic History: Reports: None Hematologic History: Reports: None Immunologic History: Reports: None Oncologic (Cancer) History: Reports: None Dermatologic History: Reports: None - Infectious Disease History Infectious Disease History: Reports: None - Past Surgical History HEENT Surgical History: Reports: Naso-Sinus Surgery Cardiovascular Surgical History: Reports: None Respiratory Surgical History: Reports: None GI Surgical History: Reports: Bariatric Procedure, Cholecystectomy, Hernia, Abdominal, Hernia Repair/Other Female Surgical History: Reports: None Endocrine Surgical History: Reports: None Neurological Surgical History: Reports: None Musculoskeletal Surgical History: Reports: Other (See Below) Other Musculoskeletal Surgeries/Procedures:: Wrist surgery, reconstructive facial surgery Oncologic Surgical History: Reports: None Dermatological Surgical History: Reports: None Social & Family History - Family History Family Medical History: Noncontributory - Tobacco Use Smoking Status *Q: Never Smoker Second Hand Smoke Exposure: No - Caffeine Use Caffeine Use: Reports: None Caffeine Use Comment: 1/day - Recreational Drug Use Recreational Drug Use: No ED ROS GENERAL - Review of Systems Review Of Systems: Comprehensive ROS is negative, except as noted in HPI. ED EXAM, GENERAL - Physical Exam Exam: See Below (see dictation) Course - Vital Signs Last Recorded V/S: Last Vital Signs Temp 97.3 F 12/18/19 16:35 Pulse 67 12/18/19 17:38 Resp 16 12/18/19 17:38 BP 105/75 12/18/19 18:12 Pulse Ox 99 12/18/19 17:38 - Orders/Labs/Meds Labs: Laboratory Tests 12/18/19 12/18/19 12/18/19 Range/Units 16:31 16:31 17:25 WBC 7.53 (4.0-11.0) K/uL RBC 4.83 (4.30-5.90) M/uL Hgb 13.6 (12.0-16.0) g/dL Hct 40.2 (36.0-46.0) % MCV 83.2 (80.0-98.0) fL MCH 28.2 (27.0-32.0) pg MCHC 33.8 (31.0-37.0) g/dL RDW Std Deviation 46.5 (28.0-62.0) fl RDW Coeff of Farhana 15 (11.0-15.0) % Plt Count 278 (150-400) K/uL MPV 9.70 (7.40-12.00) fL Neut % (Auto) 54.5 (48.0-80.0) % Lymph % (Auto) 32.3 (16.0-40.0) % Shannon % (Auto) 10.0 (0.0-15.0) % Eos % (Auto) 2.8 (0.0-7.0) % Baso % (Auto) 0.4 (0.0-1.5) % Neut # (Auto) 4.1 (1.4-5.7) K/uL Lymph # (Auto) 2.4 (0.6-2.4) K/uL Shannon # (Auto) 0.8 (0.0-0.8) K/uL Eos # (Auto) 0.2 (0.0-0.7) K/uL Baso # (Auto) 0.0 (0.0-0.1) K/uL Nucleated RBC % 0.0 /100WBC Nucleated RBCs # 0 K/uL Sodium (136-145) mmol/L Potassium (3.5-5.1) mmol/L Chloride (98-107) mmol/L Carbon Dioxide (21.0-32.0) mmol/L BUN (7.0-18.0) mg/dL Creatinine (0.6-1.0) mg/dL Est Cr Clr Drug Dosing mL/min Estimated GFR (MDRD) ml/min Glucose (74-106) mg/dL Calcium (8.5-10.1) mg/dL Total Bilirubin (0.2-1.0) mg/dL AST (15-37) IU/L ALT (14-63) IU/L Alkaline Phosphatase (46-116) U/L Total Protein (6.4-8.2) g/dL Albumin (3.4-5.0) g/dL Globulin (2.6-4.0) g/dL Albumin/Globulin Ratio (0.9-1.6) Lipase (73-393) U/L Urine Color YELLOW Urine Appearance CLEAR Urine pH 6.0 (5.0-8.0) Ur Specific [place] 1.015 (1.001-1.035) Urine Protein NEGATIVE (NEGATIVE) mg/dL Urine Glucose (UA) NEGATIVE (NEGATIVE) mg/dL Urine Ketones >=80 (NEGATIVE) mg/dL Urine Occult Blood NEGATIVE (NEGATIVE) Urine Nitrite NEGATIVE (NEGATIVE) Urine Bilirubin NEGATIVE (NEGATIVE) Urine Urobilinogen 0.2 (<2.0) EU/dL Ur Leukocyte Esterase NEGATIVE (NEGATIVE) Urine HCG, Qual NEGATIVE (NEGATIVE) 12/18/19 Range/Units 17:25 WBC (4.0-11.0) K/uL RBC (4.30-5.90) M/uL Hgb (12.0-16.0) g/dL Hct (36.0-46.0) % MCV (80.0-98.0) fL MCH (27.0-32.0) pg MCHC (31.0-37.0) g/dL RDW Std Deviation (28.0-62.0) fl RDW Coeff of Farhana (11.0-15.0) % Plt Count (150-400) K/uL MPV (7.40-12.00) fL Neut % (Auto) (48.0-80.0) % Lymph % (Auto) (16.0-40.0) % Shannon % (Auto) (0.0-15.0) % Eos % (Auto) (0.0-7.0) % Baso % (Auto) (0.0-1.5) % Neut # (Auto) (1.4-5.7) K/uL Lymph # (Auto) (0.6-2.4) K/uL Shannon # (Auto) (0.0-0.8) K/uL Eos # (Auto) (0.0-0.7) K/uL Baso # (Auto) (0.0-0.1) K/uL Nucleated RBC % /100WBC Nucleated RBCs # K/uL Sodium 141 (136-145) mmol/L Potassium 3.1 L (3.5-5.1) mmol/L Chloride 106 (98-107) mmol/L Carbon Dioxide 22.0 (21.0-32.0) mmol/L BUN 8 (7.0-18.0) mg/dL Creatinine 0.5 L (0.6-1.0) mg/dL Est Cr Clr Drug Dosing 134.32 mL/min Estimated GFR (MDRD) > 60.0 ml/min Glucose 82 (74-106) mg/dL Calcium 8.5 (8.5-10.1) mg/dL Total Bilirubin 0.3 (0.2-1.0) mg/dL AST 32 (15-37) IU/L ALT 75 H (14-63) IU/L Alkaline Phosphatase 73 (46-116) U/L Total Protein 7.0 (6.4-8.2) g/dL Albumin 3.4 (3.4-5.0) g/dL Globulin 3.6 (2.6-4.0) g/dL Albumin/Globulin Ratio 0.9 (0.9-1.6) Lipase 133 (73-393) U/L Urine Color Urine Appearance Urine pH (5.0-8.0) Ur Specific [place] (1.001-1.035) Urine Protein (NEGATIVE) mg/dL Urine Glucose (UA) (NEGATIVE) mg/dL Urine Ketones (NEGATIVE) mg/dL Urine Occult Blood (NEGATIVE) Urine Nitrite (NEGATIVE) Urine Bilirubin (NEGATIVE) Urine Urobilinogen (<2.0) EU/dL Ur Leukocyte Esterase (NEGATIVE) Urine HCG, Qual (NEGATIVE) Meds: Medications Discontinued Medications Generic Name Dose Route Start Last Admin Trade Name Freq PRN Reason Stop Dose Admin Sodium Chloride 1,000 mls @ 999 mls/hr 12/18/19 17:06 12/18/19 17:34 Normal Saline IV 12/18/19 18:06 999 mls/hr BOLUS ONE Administration Iopamidol 100 ml 12/18/19 18:45 12/18/19 18:45 Isovue-370 (76%) IVPUSH 12/18/19 18:46 100 ml ONETIME STA Administration Ondansetron HCl 4 mg 12/18/19 17:06 12/18/19 17:35 Zofran IVPUSH 12/18/19 17:07 4 mg ONETIME ONE Administration Departure - Departure Time of Disposition: 19:04 Disposition: Home, Self-Care 01 Clinical Impression: Dehydration, Generalized weakness - Discharge Information Referrals: Shefali Wilson TEST DESIGN ENGINEER [Primary Care Provider] - Forms: ED Department Discharge Additional Instructions: The following information is given to patients seen in the emergency department who are being discharged to home. This information is to outline your options for follow-up care. We provide all patients seen in our emergency department with a follow-up referral. The need for follow-up, as well as the timing and circumstances, are variable depending upon the specifics of your emergency department visit. If you don't have a primary care physician on staff, we will provide you with a referral. We always advise you to contact your personal physician following an emergency department visit to inform them of the circumstance of the visit and for follow-up with them and/or the need for any referrals to a consulting specialist. The emergency department will also refer you to a specialist when appropriate. This referral assures that you have the opportunity for follow-up care with a specialist. All of these measure are taken in an effort to provide you with optimal care, which includes your follow-up. Under all circumstances we always encourage you to contact your private physician who remains a resource for coordinating your care. When calling for follow-up care, please make the office aware that this follow-up is from your recent emergency room visit. If for any reason you are refused follow-up, please contact the [facility] at and asked to speak to the emergency department charge nurse. [facility] [address] [place] [address] [facility] [address] [place] [address] 1. Encourage small but frequent sips of fluid to prevent dehydration. 2. Follow-up with your primary care provider as well as the surgeon of your surgery as discussed. 3. Return to the ED as needed and as discussed. Sepsis Event Note - Evaluation Sepsis Screening Result: No Definite Risk - Focused Exam Vital Signs: Vital Signs Temp Pulse Resp BP Pulse Ox 12/18/19 18:12 105/75 12/18/19 17:38 67 16 105/62 99 12/18/19 16:35 97.3 F 88 16 149/93 H 98 Date Exam was Performed: 12/18/19 Time Exam was Performed: 19:02
[2019-12-18 17:58] LABS: BLOOD UREA NITROGEN,BUN 8 mg/dL (7.0-18.0); CHLORIDE,CL 106 mmol/L (98-107); GLUCOSE RANDOM 82 mg/dL (74-106); LIPASE 133 U/L (73-393); POTASSIUM,K 3.1 mmol/L (3.5-5.1); SODIUM,NA 141 mmol/L (136-145)
[2019-12-18] MEDS ORDERED: Iopamidol 755 Mg/ML 100 ML Bottle IVPUSH STA (18:45)
--- NOTE | 2019-12-18 19:00 | CT ---
CT abdomen and pelvis Technique: Multiple axial sections were obtained from above the dome of the diaphragm inferiorly through the pubic symphysis. Intravenous contrast was utilized. Comparison: Previous CT abdomen and pelvis exam of 09/02/17 is available. Findings: Visualized lung bases show nothing acute. Small low density finding is noted anteriorly within the left lobe of the liver which is not appreciated with certainty on prior exam. This measures 9 mm. This does not appear as a simple cyst but given that this is the only liver abnormality identified and given the patient's age, this is most likely benign. Spleen appears within normal limits. Adrenal glands show no nodule. Previous gastric bypass surgery is noted. Surgical clips are seen from prior cholecystectomy. Kidneys show symmetric contrast enhancement without hydronephrosis or mass. Pancreas appears within normal limits. Aorta shows no aneurysm. No retroperitoneal adenopathy or mesenteric abnormalities are seen. No pelvic mass or adenopathy is seen. No free fluid or inflammatory change is seen. Appendix is not definitely visualized. Bone window settings were reviewed which shows severe disc space narrowing at L5-S1. Impression: 1. Small liver lesion which is most likely benign as described above. 2. Prior gastric bypass surgery. 3. Nothing acute is appreciated on CT study of the abdomen and pelvis. Diagnostic code #3 This report was dictated in [place] Standard Time
[2019-12-18 19:13] VITALS: BP 99/68; PULSE 75
== END 2019-12-18 19:15 | disposition home or self-care (01) ==
LOC: MW.ED 16:12
DX: E86.0 Dehydration (principal); R53.1 Weakness; Z91.040 Latex allergy status
CPT/HCPCS: 74177; 80053; 81003; 81025; 83690; 85025; 96361; 96374; 99285; J2405; J7030; Q9967; 99284

== ENCOUNTER 2020-06-08 18:31 | Emergency (ER) | payer BC ==
[2020-06-08] MEDS ORDERED: Sodium Chloride 0.9% 1,000 ML IV ONE (18:43)
[2020-06-08] MEDS ORDERED: Pantoprazole 40 MG in Sodium Chloride 0.9% 20 ML IVPUSH ONE (19:22)
[2020-06-08] MEDS ORDERED: Ondansetron 4 MG/2 ML SDV IVPUSH ONE (19:27)
[2020-06-08] MEDS ORDERED: Morphine 4 MG/ML Syringe IVPUSH ONE (19:27)
--- NOTE | 2020-06-08 19:28 | EDM.PDOC ---
ED HPI GENERAL MEDICAL PROBLEM - General Chief Complaint: Abdominal Pain Stated Complaint: ABDOMINAL PAIN Time Seen by Provider: 06/08/20 18:36 Source of Information: Reports: Patient History Limitations: Reports: No Limitations - History of Present Illness INITIAL COMMENTS - FREE TEXT/NARRATIVE: 35-year-old female with history of gastric bypass, hiatal hernia repair, hysterectomy, cholecystectomy presents of abdominal pain. Pain is described as sharp, constant, localized to the epigastrium and left upper quadrant, rated at 9/10, started 2 hours ago. She tried taking Tums and Carafate with no relief. She denies fever, chills, chest pain, nausea, vomiting. She admits to having loose stools.- ROS: A 10-point review of systems, other than pertinent positives and negatives as stated per HPI, is otherwise negative Past medical history: No additional pertinent history Past Surgical history: No additional pertinent history Social history: No additional pertinent history Family history: No additional pertinent history PHYSICAL EXAM General: AOx4, GCS = 15, moderate distress HEENT: dry mucous membrane Neck: supple, no meningismus, no Kernig or Brudzinski Cardiac: S1S2 tachycardia Respiratory: CTAB, no crackles or rales, no wheezing Abdomen: Soft, LUE/epigastric ttp, no rebound or guarding, nondistended, no pulsatile mass. Back: nontender Musculoskeletal: NVI distally, no deformity Neuro: No focal deficits, CN 2 - 12 WNL. mid abdomen Pain Score (Numeric/FACES): 9 - Related Data Allergies Allergy/AdvReac Type Severity Reaction Status Date / Time latex Allergy Rash Verified 06/08/20 18:51 Home Meds: Home Meds Omeprazole 20 mg PO ONETIME 12/18/19 [History] Iron 45 mg PO DAILY 06/08/20 [History] Sucralfate [Carafate] 06/08/20 [History] buPROPion [Wellbutrin] 06/08/20 [History] Past Medical History HEENT History: Reports: Impaired Vision Other HEENT History: stated 8 surgeries on ears Cardiovascular History: Reports: None Respiratory History: Reports: None Gastrointestinal History: Reports: None Genitourinary History: Reports: Renal Calculus 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) Other JEWELER APPRENTICE History: hysterectomy Musculoskeletal History: Reports: None Neurological History: Reports: Migraines Psychiatric History: Reports: None Endocrine/Metabolic History: Reports: None Hematologic History: Reports: None Immunologic History: Reports: None Oncologic (Cancer) History: Reports: None Dermatologic History: Reports: None - Infectious Disease History Infectious Disease History: Reports: None - Past Surgical History HEENT Surgical History: Reports: Naso-Sinus Surgery Cardiovascular Surgical History: Reports: None Respiratory Surgical History: Reports: None GI Surgical History: Reports: Bariatric Procedure, Cholecystectomy, Hernia, Abdominal, Hernia Repair/Other Female Surgical History: Reports: None Endocrine Surgical History: Reports: None Neurological Surgical History: Reports: None Musculoskeletal Surgical History: Reports: Other (See Below) Other Musculoskeletal Surgeries/Procedures:: Wrist surgery, reconstructive facial surgery Oncologic Surgical History: Reports: None Dermatological Surgical History: Reports: None Social & Family History - Family History Family Medical History: Noncontributory - Tobacco Use Smoking Status *Q: Never Smoker - Caffeine Use Caffeine Use: Reports: None Caffeine Use Comment: 1/day - Recreational Drug Use Recreational Drug Use: No ED ROS GENERAL - Review of Systems Review Of Systems: Comprehensive ROS is negative, except as noted in HPI. ED EXAM, GENERAL - Physical Exam Exam: See Below (see dictqation) Course - Vital Signs Last Recorded V/S: Last Vital Signs Temp 96.5 F L 06/08/20 18:49 Pulse 71 06/08/20 21:40 Resp 14 06/08/20 21:40 BP 95/47 L 06/08/20 21:40 Pulse Ox 97 06/08/20 21:40 - Orders/Labs/Meds Labs: Laboratory Tests 06/08/20 06/08/20 06/08/20 Range/Units 19:10 19:10 19:10 WBC 8.42 (4.0-11.0) K/uL RBC 4.36 (4.30-5.90) M/uL Hgb 12.5 (12.0-16.0) g/dL Hct 38.5 (36.0-46.0) % MCV 88.3 (80.0-98.0) fL MCH 28.7 (27.0-32.0) pg MCHC 32.5 (31.0-37.0) g/dL RDW Std Deviation 44.3 (28.0-62.0) fl RDW Coeff of Farhana 14 (11.0-15.0) % Plt Count 295 (150-400) K/uL MPV 9.60 (7.40-12.00) fL Neut % (Auto) 75.1 (48.0-80.0) % Lymph % (Auto) 17.7 (16.0-40.0) % [place] % (Auto) 6.2 (0.0-15.0) % Eos % (Auto) 0.8 (0.0-7.0) % Baso % (Auto) 0.2 (0.0-1.5) % Neut # (Auto) 6.3 H (1.4-5.7) K/uL Lymph # (Auto) 1.5 (0.6-2.4) K/uL [place] # (Auto) 0.5 (0.0-0.8) K/uL Eos # (Auto) 0.1 (0.0-0.7) K/uL Baso # (Auto) 0.0 (0.0-0.1) K/uL Nucleated RBC % 0.0 /100WBC Nucleated RBCs # 0 K/uL INR APTT (18.6-31.3) SEC Lactate (0.20-2.00) mmol/L Sodium 138 (136-145) mmol/L Potassium 3.8 (3.5-5.1) mmol/L Chloride 103 (98-107) mmol/L Carbon Dioxide 24.9 (21.0-32.0) mmol/L BUN 12 (7.0-18.0) mg/dL Creatinine 0.6 (0.6-1.0) mg/dL Est Cr Clr Drug Dosing 115.52 mL/min Estimated GFR (MDRD) > 60.0 ml/min Glucose 91 (74-106) mg/dL Calcium 8.4 L (8.5-10.1) mg/dL Total Bilirubin 0.2 (0.2-1.0) mg/dL AST 21 (15-37) IU/L ALT 46 (14-63) IU/L Alkaline Phosphatase 87 (46-116) U/L Total Protein 7.4 (6.4-8.2) g/dL Albumin 3.8 (3.4-5.0) g/dL Globulin 3.6 (2.6-4.0) g/dL Albumin/Globulin Ratio 1.1 (0.9-1.6) Lipase 66 L (73-393) U/L Urine Color Urine Appearance Urine pH (5.0-8.0) Ur Specific [place] (1.001-1.035) Urine Protein (NEGATIVE) mg/dL Urine Glucose (UA) (NEGATIVE) mg/dL Urine Ketones (NEGATIVE) mg/dL Urine Occult Blood (NEGATIVE) Urine Nitrite (NEGATIVE) Urine Bilirubin (NEGATIVE) Urine Urobilinogen (<2.0) EU/dL Ur Leukocyte Esterase (NEGATIVE) Urine HCG, Qual (NEGATIVE) 06/08/20 06/08/20 06/08/20 Range/Units 19:36 19:36 20:30 WBC (4.0-11.0) K/uL RBC (4.30-5.90) M/uL Hgb (12.0-16.0) g/dL Hct (36.0-46.0) % MCV (80.0-98.0) fL MCH (27.0-32.0) pg MCHC (31.0-37.0) g/dL RDW Std Deviation (28.0-62.0) fl RDW Coeff of Farhana (11.0-15.0) % Plt Count (150-400) K/uL MPV (7.40-12.00) fL Neut % (Auto) (48.0-80.0) % Lymph % (Auto) (16.0-40.0) % [place] % (Auto) (0.0-15.0) % Eos % (Auto) (0.0-7.0) % Baso % (Auto) (0.0-1.5) % Neut # (Auto) (1.4-5.7) K/uL Lymph # (Auto) (0.6-2.4) K/uL [place] # (Auto) (0.0-0.8) K/uL Eos # (Auto) (0.0-0.7) K/uL Baso # (Auto) (0.0-0.1) K/uL Nucleated RBC % /100WBC Nucleated RBCs # K/uL INR 1.04 APTT 25.9 (18.6-31.3) SEC Lactate 0.7 (0.20-2.00) mmol/L Sodium (136-145) mmol/L Potassium (3.5-5.1) mmol/L Chloride (98-107) mmol/L Carbon Dioxide (21.0-32.0) mmol/L BUN (7.0-18.0) mg/dL Creatinine (0.6-1.0) mg/dL Est Cr Clr Drug Dosing mL/min Estimated GFR (MDRD) ml/min Glucose (74-106) mg/dL Calcium (8.5-10.1) mg/dL Total Bilirubin (0.2-1.0) mg/dL AST (15-37) IU/L ALT (14-63) IU/L Alkaline Phosphatase (46-116) U/L Total Protein (6.4-8.2) g/dL Albumin (3.4-5.0) g/dL Globulin (2.6-4.0) g/dL Albumin/Globulin Ratio (0.9-1.6) Lipase (73-393) U/L Urine Color YELLOW Urine Appearance CLEAR Urine pH 6.0 (5.0-8.0) Ur Specific [place] 1.010 (1.001-1.035) Urine Protein NEGATIVE (NEGATIVE) mg/dL Urine Glucose (UA) NEGATIVE (NEGATIVE) mg/dL Urine Ketones 15 H (NEGATIVE) mg/dL Urine Occult Blood NEGATIVE (NEGATIVE) Urine Nitrite NEGATIVE (NEGATIVE) Urine Bilirubin NEGATIVE (NEGATIVE) Urine Urobilinogen 0.2 (<2.0) EU/dL Ur Leukocyte Esterase NEGATIVE (NEGATIVE) Urine HCG, Qual (NEGATIVE) 06/08/ Range/Units 20:30 WBC (4.0-11.0) K/uL RBC (4.30-5.90) M/uL Hgb (12.0-16.0) g/dL Hct (36.0-46.0) % MCV (80.0-98.0) fL MCH (27.0-32.0) pg MCHC (31.0-37.0) g/dL RDW Std Deviation (28.0-62.0) fl RDW Coeff of Farhana (11.0-15.0) % Plt Count (150-400) K/uL MPV (7.40-12.00) fL Neut % (Auto) (48.0-80.0) % Lymph % (Auto) (16.0-40.0) % [place] % (Auto) (0.0-15.0) % Eos % (Auto) (0.0-7.0) % Baso % (Auto) (0.0-1.5) % Neut # (Auto) (1.4-5.7) K/uL Lymph # (Auto) (0.6-2.4) K/uL [place] # (Auto) (0.0-0.8) K/uL Eos # (Auto) (0.0-0.7) K/uL Baso # (Auto) (0.0-0.1) K/uL Nucleated RBC % /100WBC Nucleated RBCs # K/uL INR APTT (18.6-31.3) SEC Lactate (0.20-2.00) mmol/L Sodium (136-145) mmol/L Potassium (3.5-5.1) mmol/L Chloride (98-107) mmol/L Carbon Dioxide (21.0-32.0) mmol/L BUN (7.0-18.0) mg/dL Creatinine (0.6-1.0) mg/dL Est Cr Clr Drug Dosing mL/min Estimated GFR (MDRD) ml/min Glucose (74-106) mg/dL Calcium (8.5-10.1) mg/dL Total Bilirubin (0.2-1.0) mg/dL AST (15-37) IU/L ALT (14-63) IU/L Alkaline Phosphatase (46-116) U/L Total Protein (6.4-8.2) g/dL Albumin (3.4-5.0) g/dL Globulin (2.6-4.0) g/dL Albumin/Globulin Ratio (0.9-1.6) Lipase (73-393) U/L Urine Color Urine Appearance Urine pH (5.0-8.0) Ur Specific [place] (1.001-1.035) Urine Protein (NEGATIVE) mg/dL Urine Glucose (UA) (NEGATIVE) mg/dL Urine Ketones (NEGATIVE) mg/dL Urine Occult Blood (NEGATIVE) Urine Nitrite (NEGATIVE) Urine Bilirubin (NEGATIVE) Urine Urobilinogen (<2.0) EU/dL Ur Leukocyte Esterase (NEGATIVE) Urine HCG, Qual NEGATIVE (NEGATIVE) Meds: Medications Discontinued Medications Generic Name Dose Route Start Last Admin Trade Name Freq PRN Reason Stop Dose Admin Diatrizoate Meglum/Diatrizoate Sod 30 ml 06/08/20 20:31 06/08/20 20:51 Gastrografin 37% PO 06/08/20 20:32 30 ml ONETIME ONE Administration Sodium Chloride 1,000 mls @ 999 mls/hr 06/08/20 18:43 06/08/20 19:06 Normal Saline IV 06/08/20 19:43 999 mls/hr STAT ONE Administration Pantoprazole Sodium 40 mg/ 20 mls @ 420 mls/hr 06/08/20 19:22 06/08/20 19:43 Sodium Chloride IVPUSH 06/08/20 19:24 420 mls/hr ONETIME ONE Administration Iopamidol 100 ml 06/08/20 20:50 06/08/20 20:51 Isovue-370 (76%) IVPUSH 06/08/20 20:51 100 ml ONETIME ONE Administration Morphine Sulfate 4 mg 06/08/20 19:27 06/08/20 19:41 Morphine IVPUSH 06/08/20 19:28 4 mg ONETIME ONE Administration Ondansetron HCl 4 mg 06/08/20 19:27 06/08/20 19:41 Zofran IVPUSH 06/08/20 19:28 4 mg ONETIME ONE Administration - Re-Assessments/Exams Free Text/Narrative Re-Assessment/Exam: 06/08/20 21:52 After IV medications and observation in the ER, her pain is improved and she is currently stable for discharge. I performed a repeat exam and did not appreciate new abnormal findings. Patient exhibits normal vital signs, her abdomin is soft, nontender, no rebound or guarding. I advised the patient to return to the ER for reevaluation if symptoms worsened, including fever, worsening pain, or any other worrisome symptoms. I instructed the patient to follow up with Dr. Ama Wong within 1 week. MEDICAL DECISION MAKING: I reviewed the patients past medical records, lab and radiographic findings. I discussed the case with the patient. My differential diagnosis included: Blood work unremarkable, doubt pancreatitis or appendicitis. She has no tenderness to right lower quadrant or periumbilical tenderness. She is maximally tender in the left upper quadrant, CT was performed with IV and oral contrast concerning for gastric bypass complication. CT did not reveal any underlying abnormality warranting additional surgical consultation. After medications, her abdominal pain is resolved, patient is stable for discharge with outpatient follow-up with Dr. Wong. Departure - Departure Time of Disposition: 21:54 Disposition: Home, Self-Care 01 Condition: Good Clinical Impression: Abdominal pain - Discharge Information *PRESCRIPTION DRUG MONITORING PROGRAM REVIEWED*: Not Applicable *COPY OF PRESCRIPTION DRUG MONITORING REPORT IN PATIENT NETTE: Not Applicable Instructions: Abdominal Pain, Adult, [id number] Referrals: Shefali Wilson NP [Primary Care Provider] - Ama Keyes NP [Ordering Only Provider] - 1 Week Forms: ED Department Discharge Additional Instructions: The following information is given to patients seen in the emergency department who are being discharged to home. This information is to outline your options for follow-up care. We provide all patients seen in our emergency department with a follow-up referral. The need for follow-up, as well as the timing and circumstances, are variable depending upon the specifics of your emergency department visit. If you don't have a primary care physician on staff, we will provide you with a referral. We always advise you to contact your personal physician following an emergency department visit to inform them of the circumstance of the visit and for follow-up with them and/or the need for any referrals to a consulting specialist. The emergency department will also refer you to a specialist when appropriate. This referral assures that you have the opportunity for follow-up care with a specialist. All of these measure are taken in an effort to provide you with optimal care, which includes your follow-up. Under all circumstances we always encourage you to contact your private physician who remains a resource for coordinating your care. When calling for follow-up care, please make the office aware that this follow-up is from your recent emergency room visit. If for any reason you are refused follow-up, please contact the [facility] Emergency Department at and asked to speak to the emergency department charge nurse. If you do not have a primary care doctor, please follow up with the clinics below within 3-5 days. [facility] [address] [place] [id number] [facility] [address] [place] [id number] Sepsis Event Note (ED) - Evaluation Sepsis Screening Result: No Definite Risk - Focused Exam Vital Signs: Vital Signs Temp Pulse Resp BP Pulse Ox 06/08/20 21:40 71 14 95/47 L 97 06/08/20 18:49 96.5 F L 103 H 18 146/90 H 99
[2020-06-08 19:53] LABS: BLOOD UREA NITROGEN,BUN 12 mg/dL (7.0-18.0); CARBON DIOXIDE,CO2 24.9 mmol/L (21.0-32.0); CHLORIDE,CL 103 mmol/L (98-107); GLUCOSE RANDOM 91 mg/dL (74-106); POTASSIUM,K 3.8 mmol/L (3.5-5.1); SODIUM,NA 138 mmol/L (136-145)
[2020-06-08] MEDS ORDERED: Diatrizoate Meglumine/Diatrizoate Sodium 37% 30 ML Bottle PO ONE ×2 (20:31→20:51)
[2020-06-08] MEDS ORDERED: Iopamidol 755 Mg/ML 100 ML Bottle IVPUSH ONE (20:50)
--- NOTE | 2020-06-08 21:37 | CT ---
INDICATION: Abdominal pain for 5 hours. Gastric bypass surgery October 2019. TECHNIQUE: CT of the abdomen and pelvis performed after oral ingestion of 30 mL of Gastrografin and 100 mL of Isovue-370 injected intravenously. FINDINGS: Mild elevation eventration right hemidiaphragm. Postsurgical changes in the stomach and small bowel consistent prior gastric bypass surgery. No evidence of bowel obstruction. Cholecystectomy without significant biliary dilatation. 2-3 mm uncalcified nodule in the left lower lobe anterolaterally. Few scattered additional smaller uncalcified nodules in the left lower lobe. Tiny nodules in the right lung base. Moderate nodular soft tissue density in the periumbilical lower anterior abdominal wall may be related to postoperative nodular scarring. Mild subcutaneous edema. The wall of the urinary bladder is mild to moderately thickened possibly related to incomplete distention. Small lymph nodes in the abdomen and pelvis are normal in size in the abdominal retroperitoneum and range from small to upper limits normal in the pelvis. Small amount of free fluid in the pelvis posteriorly could be physiologic in a patient of this age but overall nonspecific. Uterus is absent. Mild subcutaneous edema abdomen pelvis and scattered lymph nodes in the abdominal mesentery should be reactive. Mesh material posterior to the mid and lower midline anterior abdominal wall. Remainder negative. Impression : 1. Postsurgical changes in the abdomen consistent with prior cholecystectomy and gastric bypass surgery without evidence of biliary dilatation or bowel obstruction. 2. Small amount of free fluid in the pelvis posteriorly could be physiologic in a patient of this age but overall is indeterminate. 3. Moderate abnormal soft tissue density in the periumbilical lower anterior abdominal wall could be related to nodular scarring and but is nonspecific. 4. Hysterectomy. Other findings above. Please note that all CT scans at this facility use dose modulation, iterative reconstruction, and/or weight-based dosing when appropriate to reduce radiation dose to as low as reasonably achievable. Dictated by Robert Lara MD @ Jun 08 2020 9:26PM Signed by Dr. Robert Lara @ Jun 08 2020 9:35PM
[2020-06-08 22:20] VITALS: BP 95/58; PULSE 54
== END 2020-06-08 22:19 | disposition home or self-care (01) ==
LOC: MW.ED 18:31
DX: R10.13 Epigastric pain (principal); R10.12 Left upper quadrant pain; Z91.040 Latex allergy status; Z90.710 Acquired absence of both cervix and uterus; Z90.49 Acquired absence of other specified parts of digestive tract
CPT/HCPCS: 36415; 74177; 80053; 81003; 81025; 83605; 83690; 85025; 85610; 85730; 96361; 96374; 96375; 99284; C9113; J2270; J2405; J7030; Q9963; Q9967

== ENCOUNTER 2020-06-11 21:08 | Emergency (ER) | payer BC ==
[2020-06-11] MEDS ORDERED: HYDROmorphone 1 MG/ML Syringe IVPUSH ONE (22:11)
[2020-06-11] MEDS ORDERED: Sodium Chloride 0.9% 10 ML Syringe FLUSH PRN (22:11)
[2020-06-11] MEDS ORDERED: Sodium Chloride 0.9% 2.5 ML Syringe FLUSH PRN (22:11)
[2020-06-11] MEDS ORDERED: Sodium Chloride 0.9% 1,000 ML IV ONE (22:12)
[2020-06-11] MEDS ORDERED: Ondansetron 4 MG/2 ML SDV IVPUSH ONE (22:12)
[2020-06-11] MEDS ORDERED: Ondansetron 4 MG/2 ML SDV ONE (22:14)
[2020-06-11 22:34] LABS: BLOOD UREA NITROGEN,BUN 10 mg/dL (7.0-18.0); CARBON DIOXIDE,CO2 24.3 mmol/L (21.0-32.0); CHLORIDE,CL 103 mmol/L (98-107); GLUCOSE RANDOM 84 mg/dL (74-106); LIPASE 55 U/L (73-393); POTASSIUM,K 3.6 mmol/L (3.5-5.1); SODIUM,NA 138 mmol/L (136-145)
[2020-06-11] MEDS ORDERED: Morphine 4 MG/ML Syringe IVPUSH ONE (22:56)
--- NOTE | 2020-06-12 01:19 | CT ---
INDICATION: Abdominal pain. Patient is status post gastric bypass. TECHNIQUE: Axial images were obtained from the diaphragm to the pubic symphysis. Reformats were obtained in the coronal and sagittal plane. IV Contrast: 100 cc Isovue 370 Oral Contrast: Yes COMPARISON: Abdomen and pelvis CT 06/08/2020 FINDINGS: Lower chest: Unremarkable. Liver: Unremarkable. Normal in size and attenuation. No masses. Gallbladder and bile ducts: Status post cholecystectomy. Spleen: Unremarkable. Normal in size without mass. Pancreas: Unremarkable. No mass or inflammation. Adrenal glands: Unremarkable. No nodules. Kidneys: Unremarkable. No masses, stones, or hydronephrosis. Vasculature: Unremarkable. GI tract: Patient was administered oral contrast on the current examination and note is made of oral contrast on the prior exam as well. Contrast is seen throughout much of the small bowel as well as contrast within the colon which may represent some transit of the previously administered contrast. Soft tissue density seen in the periumbilical region, probably postoperative granulation tissue. Status post gastric bypass. There is no significant wall thickening, however note is made of fat stranding in the central mesentery extending into the left flank. 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 Distal small bowel somewhat decompressed relative to the more proximal small bowel although there is not a well-defined single transition point. Pelvis: Distended bladder. Status post hysterectomy. Trace free fluid in the abdomen and pelvis. Bones: Degenerative disc disease L5-S1. IMPRESSION: 1. Swirling and twisting of the small bowel mesentery. Although there is a mild discrepancy in bowel caliber, this does not appear to cause a small-bowel obstruction. 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 This is slightly increased compared to the study of 4 days prior. Please note that all CT scans at this facility use dose modulation, iterative reconstruction, and/or weight-based dosing when appropriate to reduce radiation dose to as low as reasonably achievable. Dictated by Alexi Agosto MD @ Jun 12 2020 12:57AM Signed by Dr. Alexi Agosto @ Jun 12 2020 1:17AM
[2020-06-12] MEDS ORDERED: Iopamidol 755 Mg/ML 100 ML Bottle IVPUSH STA (01:31)
[2020-06-12] MEDS ORDERED: Diatrizoate Meglumine/Diatrizoate Sodium 37% 30 ML Bottle PO STA (01:32)
[2020-06-12] MEDS ORDERED: Diatrizoate Meglumine/Diatrizoate Sodium 37% 30 ML Bottle PO ONE (01:32)
--- NOTE | 2020-06-12 03:41 | EDM.PDOC ---
ED HPI GENERAL MEDICAL PROBLEM - General Chief Complaint: Abdominal Pain Stated Complaint: ABDOMINAL PAIN Time Seen by Provider: 06/11/20 22:39 Source of Information: Reports: Patient History Limitations: Reports: No Limitations - History of Present Illness INITIAL COMMENTS - FREE TEXT/NARRATIVE: HISTORY AND PHYSICAL: History of present illness: This is a 35-year-old female who presents ER today complaining of abdominal pain. Patient has a history significant for gastric bypass that was performed by Dr. Estes on November 12 and [facility]. Patient reports that she has had her procedure complicated with multiple episodes of abdominal discomfort after eating. Patient reports that she is currently scheduled for an exploratory laparoscopic surgery this coming Tuesday with possible bowel resection secondary to having this pain for quite some time. Patient reports that anytime she eats she has pain and discomfort in her abdomen. Patient denies any fevers, shakes, chills. Patient does admit to nausea but no emesis. Patient denies any diarrhea, dysuria, frequency, urgency. Patient reports her last bowel movement was Tuesday which is not unusual for the patient. Patient reports her prior surgeries include a cholecystectomy and a total abdominal hysterectomy. Patient denies any history of hypertension, diabetes, liver, lung, kidney, pancreas problems. Patient reports that she was seen and evaluated here a few days ago and had a CT scan was unremarkable. Patient reports that her pain today is slightly worse and presents to the ER today for assistance with her nausea. Review of systems: As per history of present illness and below otherwise all systems reviewed and negative. Past medical history: As per history of present illness and as reviewed below otherwise noncontributory. Surgical history: As per history of present illness and as reviewed below otherwise noncontributory. Social history: No reported history of drug or alcohol abuse. Family history: As per history of present illness and as reviewed below otherwise noncontributory. Physical exam: Well-developed well-nourished no acute distress. HEENT: Atraumatic, normocephalic, pupils reactive, negative for conjunctival pallor or scleral icterus, mucous membranes moist, throat clear, neck supple, nontender, trachea midline. Moist mucous membranes. Nontoxic-appearing. Lungs: Clear to auscultation, breath sounds equal bilaterally, chest nontender. Heart: S1S2, regular, negative for clicks, rubs, or JVD. Abd: Soft, nondistended, no rebound/guarding, no psoas or obturator signs, no tenderness at Mcberney's point, no Hernandez's sign. Pt does not present with an exam that would be consistent with an acute surgical abdomen at this time, mild tenderness to palpation diffusely greatest in the midepigastric region Pelvis: Stable nontender. Genitourinary: Deferred. Rectal: Deferred. Extremities: Atraumatic, negative for cords or calf pain. Neurovascular unremarkable. Neuro: Awake, alert, oriented. Cranial nerves II through XII unremarkable. Cerebellum unremarkable. Motor and sensory unremarkable throughout. Exam nonfocal. Diagnostics: CT abdomen pelvis reviewed with patient as well as with Dr. Miller who is covering for Dr. estes. Therapeutics: While in the ER, the patient received adequate analgesia. Although she initially refused pain medication she did agree to a small dose of morphine to assist with her discomfort as well as Zofran and IV fluids. Assessment and plan: 35-year-old female who is status post gastric bypass who presents ER today with chronic abdominal discomfort ever since her surgery. Patient is scheduled to follow-up with her gastric bypass surgeon for exploratory surgery on Tuesday with possible bowel resection. I have offered admission to the patient however she is declining admission as she does feel improved in the ED. Patient has been reevaluated in the ER by me multiple times with improving exams. Patient has presented with any signs or symptoms of be concerning for an acute surgical abdomen. Reassessment at the time of disposition demonstrates that the patient is in no acute distress. The patient has remained stable throughout the entire ED visit and is without objective evidence for acute process requiring urgent intervention or hospitalization. The patient is stable for discharge, counseling is provided as documented above, discussed symptomatic treatment and specific conditions for return. I have spoken with the patient/caregive and discussed todays findings, in addition to providing specific details for the plan of care. Questions are answered and there is agreement with the plan. Definitive disposition and diagnosis as appropriate pending reevaluation and review of above. center and L abdomen Pain Score (Numeric/FACES): 7 - Related Data Allergies Allergy/AdvReac Type Severity Reaction Status Date / Time latex Allergy Rash Verified 06/11/20 21:13 Home Meds: Home Meds Omeprazole 20 mg PO ONETIME 12/18/19 [History] Iron 90 mg PO DAILY 06/08/20 [History] Sucralfate [Carafate] 1 gm PO QID 06/08/20 [History] buPROPion [Wellbutrin] 75 mg PO DAILY 06/08/20 [History] Famotidine 20 mg PO DAILY 06/11/20 [History] Multivitamin 1 tab PO DAILY 06/11/20 [History] Ondansetron [Zofran ODT] 4 mg PO Q6H PRN #12 tab.dis 06/12/20 [Rx] Past Medical History HEENT History: Reports: Impaired Vision Other HEENT History: stated 8 surgeries on ears Cardiovascular History: Reports: None Respiratory History: Reports: None Gastrointestinal History: Reports: None Genitourinary History: Reports: Renal Calculus 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 OPERATOR History: Reports: Other (See Below) Other ANCHOR OPERATOR History: hysterectomy Musculoskeletal History: Reports: None Neurological History: Reports: Migraines Psychiatric History: Reports: None Endocrine/Metabolic History: Reports: None Hematologic History: Reports: None Immunologic History: Reports: None Oncologic (Cancer) History: Reports: None Dermatologic History: Reports: None - Infectious Disease History Infectious Disease History: Reports: None - Past Surgical History HEENT Surgical History: Reports: Naso-Sinus Surgery Cardiovascular Surgical History: Reports: None Respiratory Surgical History: Reports: None GI Surgical History: Reports: Bariatric Procedure, Cholecystectomy, Hernia, Abdominal, Hernia Repair/Other Female Surgical History: Reports: Hysterectomy Endocrine Surgical History: Reports: None Neurological Surgical History: Reports: None Musculoskeletal Surgical History: Reports: Other (See Below) Other Musculoskeletal Surgeries/Procedures:: Wrist surgery, reconstructive facial surgery Oncologic Surgical History: Reports: None Dermatological Surgical History: Reports: None Social & Family History - Family History Family Medical History: Noncontributory - Tobacco Use Smoking Status *Q: Never Smoker - Caffeine Use Caffeine Use: Reports: None Caffeine Use Comment: 1/day - Recreational Drug Use Recreational Drug Use: No ED ROS GENERAL - Review of Systems Review Of Systems: Comprehensive ROS is negative, except as noted in HPI. ED EXAM, GENERAL - Physical Exam Exam: See Below Course - Vital Signs Last Recorded V/S: Last Vital Signs Temp 97.5 F 06/12/20 03:58 Pulse 76 06/12/20 03:58 Resp 17 06/12/20 03:58 BP 123/93 H 06/12/20 03:58 Pulse Ox 97 06/12/20 03:58 - Orders/Labs/Meds Orders: Active Orders 24 hr Category Date Time Status Saline Lock Insert [OM.PC] Stat Oth 06/11/20 22:11 Ordered Labs: Laboratory Tests 06/11/20 06/11/20 06/11/20 Range/Units 22:07 22:07 22:07 WBC 8.28 (4.0-11.0) K/uL RBC 4.44 (4.30-5.90) M/uL Hgb 13.0 (12.0-16.0) g/dL Hct 38.5 (36.0-46.0) % MCV 86.7 (80.0-98.0) fL MCH 29.3 (27.0-32.0) pg MCHC 33.8 (31.0-37.0) g/dL RDW Std Deviation 43.3 (28.0-62.0) fl RDW Coeff of Farhana 14 (11.0-15.0) % Plt Count 280 (150-400) K/uL MPV 9.30 (7.40-12.00) fL Neut % (Auto) 65.6 (48.0-80.0) % Lymph % (Auto) 23.9 (16.0-40.0) % [place] % (Auto) 8.5 (0.0-15.0) % Eos % (Auto) 1.8 (0.0-7.0) % Baso % (Auto) 0.2 (0.0-1.5) % Neut # (Auto) 5.4 (1.4-5.7) K/uL Lymph # (Auto) 2.0 (0.6-2.4) K/uL [place] # (Auto) 0.7 (0.0-0.8) K/uL Eos # (Auto) 0.2 (0.0-0.7) K/uL Baso # (Auto) 0.0 (0.0-0.1) K/uL Nucleated RBC % 0.0 /100WBC Nucleated RBCs # 0 K/uL Lactate (0.20-2.00) mmol/L Sodium 138 (136-145) mmol/L Potassium 3.6 (3.5-5.1) mmol/L Chloride 103 (98-107) mmol/L Carbon Dioxide 24.3 (21.0-32.0) mmol/L BUN 10 (7.0-18.0) mg/dL Creatinine 0.6 (0.6-1.0) mg/dL Est Cr Clr Drug Dosing 115.52 mL/min Estimated GFR (MDRD) > 60.0 ml/min Glucose 84 (74-106) mg/dL Calcium 8.5 (8.5-10.1) mg/dL Total Bilirubin 0.3 (0.2-1.0) mg/dL AST 21 (15-37) IU/L ALT 45 (14-63) IU/L Alkaline Phosphatase 81 (46-116) U/L Total Protein 7.3 (6.4-8.2) g/dL Albumin 3.8 (3.4-5.0) g/dL Globulin 3.5 (2.6-4.0) g/dL Albumin/Globulin Ratio 1.1 (0.9-1.6) Lipase 55 L (73-393) U/L Urine Color YELLOW Urine Appearance CLEAR Urine pH 6.0 (5.0-8.0) Ur Specific [place] <= 1.005 (1.001-1.035) Urine Protein NEGATIVE (NEGATIVE) mg/dL Urine Glucose (UA) NEGATIVE (NEGATIVE) mg/dL Urine Ketones 15 H (NEGATIVE) mg/dL Urine Occult Blood NEGATIVE (NEGATIVE) Urine Nitrite NEGATIVE (NEGATIVE) Urine Bilirubin NEGATIVE (NEGATIVE) Urine Urobilinogen 0.2 (<2.0) EU/dL Ur Leukocyte Esterase NEGATIVE (NEGATIVE) 06/11/20 Range/Units 22:07 WBC (4.0-11.0) K/uL RBC (4.30-5.90) M/uL Hgb (12.0-16.0) g/dL Hct (36.0-46.0) % MCV (80.0-98.0) fL MCH (27.0-32.0) pg MCHC (31.0-37.0) g/dL RDW Std Deviation (28.0-62.0) fl RDW Coeff of Farhana (11.0-15.0) % Plt Count (150-400) K/uL MPV (7.40-12.00) fL Neut % (Auto) (48.0-80.0) % Lymph % (Auto) (16.0-40.0) % [place] % (Auto) (0.0-15.0) % Eos % (Auto) (0.0-7.0) % Baso % (Auto) (0.0-1.5) % Neut # (Auto) (1.4-5.7) K/uL Lymph # (Auto) (0.6-2.4) K/uL [place] # (Auto) (0.0-0.8) K/uL Eos # (Auto) (0.0-0.7) K/uL Baso # (Auto) (0.0-0.1) K/uL Nucleated RBC % /100WBC Nucleated RBCs # K/uL Lactate 0.6 (0.20-2.00) mmol/L Sodium (136-145) mmol/L Potassium (3.5-5.1) mmol/L Chloride (98-107) mmol/L Carbon Dioxide (21.0-32.0) mmol/L BUN (7.0-18.0) mg/dL Creatinine (0.6-1.0) mg/dL Est Cr Clr Drug Dosing mL/min Estimated GFR (MDRD) ml/min Glucose (74-106) mg/dL Calcium (8.5-10.1) mg/dL Total Bilirubin (0.2-1.0) mg/dL AST (15-37) IU/L ALT (14-63) IU/L Alkaline Phosphatase (46-116) U/L Total Protein (6.4-8.2) g/dL Albumin (3.4-5.0) g/dL Globulin (2.6-4.0) g/dL Albumin/Globulin Ratio (0.9-1.6) Lipase (73-393) U/L Urine Color Urine Appearance Urine pH (5.0-8.0) Ur Specific [place] (1.001-1.035) Urine Protein (NEGATIVE) mg/dL Urine Glucose (UA) (NEGATIVE) mg/dL Urine Ketones (NEGATIVE) mg/dL Urine Occult Blood (NEGATIVE) Urine Nitrite (NEGATIVE) Urine Bilirubin (NEGATIVE) Urine Urobilinogen (<2.0) EU/dL Ur Leukocyte Esterase (NEGATIVE) Meds: Medications Discontinued Medications Generic Name Dose Route Start Last Admin Trade Name Freq PRN Reason Stop Dose Admin Diatrizoate Meglum/Diatrizoate Sod 30 ml 06/12/20 01:32 06/12/20 01:34 Gastrografin 37% PO 06/12/20 01:33 30 ml ONETIME STA Administration Hydromorphone HCl 1 mg 06/11/20 22:11 06/11/20 23:06 Dilaudid IVPUSH 06/11/20 22:12 Not Given ONETIME ONE Sodium Chloride 1,000 mls @ 999 mls/hr 06/11/20 22:12 06/11/20 22:15 Normal Saline IV 06/11/20 23:12 999 mls/hr ONETIME ONE Administration Iopamidol 100 ml 06/12/20 01:31 06/12/20 01:34 Isovue-370 (76%) IVPUSH 06/12/20 01:32 100 ml ONETIME STA Administration Morphine Sulfate 4 mg 06/11/20 22:56 06/11/20 23:06 Morphine IVPUSH 06/11/20 22:57 4 mg ONETIME ONE Administration Ondansetron HCl 4 mg 06/11/20 22:12 06/11/20 22:15 Zofran IVPUSH 06/11/20 22:13 4 mg ONETIME ONE Administration Ondansetron HCl Confirm 06/11/20 22:14 06/11/20 22:15 Zofran Administered 06/11/20 22:15 Not Given Dose 4 mg .ROUTE .STK-MED ONE Ondansetron HCl 4 mg 06/12/20 03:42 06/12/20 03:51 Zofran IVPUSH 06/12/20 03:43 4 mg ONETIME ONE Administration Sodium Chloride 10 ml 06/11/20 22:11 06/11/20 23:06 Saline Flush FLUSH 10 ml ASDIRECTED PRN Administration Keep Vein Open Sodium Chloride 2.5 ml 06/11/20 22:11 Saline Flush FLUSH ASDIRECTED PRN Keep Vein Open - Re-Assessments/Exams Free Text/Narrative Re-Assessment/Exam: 06/12/20 03:35 CT scan of the abdomen and pelvis with IV and p.o. contrast reveals the following. Swirling and twisting of the small bowel mesentery. Although there is a mild discrepancy in bowel caliber, this does not appear to cause a small maggi wel obstruction. 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 This is slightly increased compared to the study of [address] report was discussed with Dr. Miller who is currently on-call at [facility] for Dr. ladd. Labs and patient's clinical status has been reviewed with him and he reports that if the patient is clinically stable that there is no indication at this time for transfer or emergent procedure. He has recommended that the patient have a copy of the CT report so that she can call Dr. Estes's office in the morning to review the CT report with her service. I have reviewed the results with the patient as well as reassessed her multiple times while in the ED. Patient reports that she is feeling much better in the ER and feels very comfortable with the plan to be discharged home. I have given her a copy of the CT report and have instructed her to call Dr. Estes's office in the morning to discuss the case with her service. At this time, the patient does not feel that she would require admission. I have offered admission for observation to the patient but she feels that her abdominal pain at this time is well controlled and she would prefer to go home and await her surgery on Tuesday. I have instructed the patient to return to the ER if the pain should worsen or if she should change her mind regarding hospital admission. Patient is requesting a dose of Zofran prior to discharge to home but does not feel like she would require any pain medication. Reassessment at the time of disposition demonstrates that the patient is in no acute distress. The patient has remained stable throughout the entire ED visit and is without objective evidence for acute process requiring urgent intervention or hospitalization. The patient is stable for discharge, counseling is provided as documented above, discussed symptomatic treatment and specific conditions for return. I have spoken with the patient/caregive and discussed todays findings, in addition to providing specific details for the plan of care. Questions are answered and there is agreement with the plan. Departure - Departure Time of Disposition: 03:39 Disposition: Home, Self-Care 01 Condition: Good Clinical Impression: Abdominal pain - Discharge Information Prescriptions: Ondansetron [Zofran ODT] 4 mg PO Q6H PRN #12 tab.dis PRN Reason: Nausea Instructions: Abdominal Pain, Adult Referrals: Shefali Wilson, SPINNING SUPERVISOR [Primary Care Provider] - Forms: ED Department Discharge Additional Instructions: You have been seen and evaluated in ER today secondary to the abdominal pain that you are experiencing after having a gastric bypass. A copy of your CT scan has been given to you so that you can call Dr. Estes's office in the morning and review the results with them as well. I have discussed the case with Dr. Miller who is covering for Dr. mimi woods. Given your current clinical picture, he does not feel that emergent surgery is required at this time. Please return to the ER if your pain worsens or you have any new or concerning symptoms. You have been given a prescription for Zofran to assist you with your nausea. The following information is given to patients seen in the emergency department who are being discharged to home. This information is to outline your options for follow-up care. We provide all patients seen in our emergency department with a follow-up referral. The need for follow-up, as well as the timing and circumstances, are variable depending upon the specifics of your emergency department visit. If you don't have a primary care physician on staff, we will provide you with a referral. We always advise you to contact your personal physician following an emergency department visit to inform them of the circumstance of the visit and for follow-up with them and/or the need for any referrals to a consulting specialist. The emergency department will also refer you to a specialist when appropriate. This referral assures that you have the opportunity for follow-up care with a specialist. All of these measure are taken in an effort to provide you with optimal care, which includes your follow-up. Under all circumstances we always encourage you to contact your private physician who remains a resource for coordinating your care. When calling for follow-up care, please make the office aware that this follow-up is from your recent emergency room visit. If for any reason you are refused follow-up, please contact the [facility] Emergency Department at and asked to speak to the emergency department charge nurse. Sepsis Event Note (ED) - Evaluation Sepsis Screening Result: No Definite Risk - Focused Exam Vital Signs: Vital Signs Temp Pulse Resp BP Pulse Ox 07/30/20 03:58 97.5 F 76 17 123/93 H 97 06/12/20 02:35 63 105/64 97 06/12/20 02:34 74 115/87 98 06/12/20 01:55 60 86/43 L 98 06/12/20 00:54 63 108/73 98 06/11/20 22:37 97.7 F 71 16 122/79 97 06/11/20 22:19 71 18 120/73 96 06/11/20 21:16 98.6 F 97 20 138/83 97 - My Orders Last 24 Hours: My Active Orders 06/11/20 22:11 Saline Lock Insert [OM.PC] Stat - Assessment/Plan Last 24 Hours: My Active Orders 06/11/20 22:11 Saline Lock Insert [OM.PC] Stat
[2020-06-12] MEDS ORDERED: Ondansetron 4 MG/2 ML SDV IVPUSH ONE (03:42)
[2020-06-12 04:12] VITALS: BP 123/93; PULSE 76
== END 2020-06-12 03:59 | disposition home or self-care (01) ==
LOC: MW.ED 21:08
DX: R10.13 Epigastric pain (principal); Z91.040 Latex allergy status; Z79.899 Other long term (current) drug therapy
CPT/HCPCS: 36415; 74177; 80053; 81003; 83605; 83690; 85025; 96374; 96375; 96376; 99284; J2270; J2405; J7030; Q9963; Q9967

== ENCOUNTER 2020-09-20 18:44 | Emergency (ER) | payer BC ==
[2020-09-20] MEDS ORDERED: Sodium Chloride 0.9% 1,000 ML IV ONE (19:12)
[2020-09-20] MEDS ORDERED: Sodium Chloride 0.9% 10 ML Syringe FLUSH PRN (19:12)
[2020-09-20] MEDS ORDERED: Sodium Chloride 0.9% 2.5 ML Syringe FLUSH PRN (19:12)
[2020-09-20] MEDS ORDERED: Ondansetron 4 MG/2 ML SDV IVPUSH ONE (19:12)
[2020-09-20] MEDS ORDERED: HYDROmorphone 1 MG/ML Syringe IVPUSH ONE (19:22)
[2020-09-20 19:27] LABS: BLOOD UREA NITROGEN,BUN 11 mg/dL (7.0-18.0); CARBON DIOXIDE,CO2 25.8 mmol/L (21.0-32.0); CHLORIDE,CL 103 mmol/L (98-107); GLUCOSE RANDOM 76 mg/dL (74-106); LIPASE 92 U/L (73-393); POTASSIUM,K 3.4 mmol/L (3.5-5.1); SODIUM,NA 139 mmol/L (136-145)
--- NOTE | 2020-09-20 20:28 | CT ---
HISTORY: Abdominal pain. History of prior cholecystectomy and gastric bypass. Prior bowel obstruction. TECHNIQUE: Intravenous contrast enhanced CT of the abdomen and pelvis. 100 mL of Isovue-370 intravenous contrast administered. Oral contrast was also administered. COMPARISON: 06/12/2020. FINDINGS: Prior cholecystectomy. No biliary ductal dilatation. No liver mass. Spleen and adrenal glands are unremarkable. No focal pancreatic abnormality. Symmetric nephrograms. No renal mass or hydronephrosis. No obstructive urinary calculus. Urinary bladder is mildly distended and prior hysterectomy. Trace amount of pelvic free fluid. - Postsurgical changes of gastric bypass. The excluded stomach does not appear excessively distended. No small bowel obstruction. Moderate stool within portions of the colon. No free intraperitoneal air or localized collection. No abdominal aortic aneurysm. Prior ventral abdominal wall hernia repair. No recurrent hernia in that region. - There are several nodules within the lung bases. For example, 3-4 mm left lower lobe pulmonary nodule image #8 of series 201 is unchanged. 4 mm left lower lobe pulmonary nodule image #17 is unchanged. Additional scattered nodules are unchanged. There is no lung consolidation or pleural effusion. - Degenerative changes of the spine. No acute fractures. IMPRESSION: 1. Postsurgical changes of prior gastric bypass. The excluded stomach does not appear excessively distended. There is no small bowel obstruction. 2. Trace pelvic free fluid. No localized fluid collection or free air. 3. Changes of prior cholecystectomy. Biliary system within normal limits for postcholecystectomy state. 4. Stable micro nodules within the lung bases. Dictated by Giorgi Haddad MD @ 09/20/2020 8:27:20 PM Please note that all CT scans at this facility use dose modulation, iterative reconstruction, and/or weight-based dosing when appropriate to reduce radiation dose to as low as reasonably achievable. Dictated by: Giorgi Haddad MD @ 09/20/2020 20:27:43 (Electronically Signed)
--- NOTE | 2020-09-20 20:51 | EDM.PDOC ---
ED HPI GENERAL MEDICAL PROBLEM - General Chief Complaint: Gastrointestinal Problem Stated Complaint: ABDOMINAL PAIN Time Seen by Provider: 09/20/20 19:09 - History of Present Illness INITIAL COMMENTS - FREE TEXT/NARRATIVE: HISTORY AND PHYSICAL: History of present illness: This is a 35-year-old female with a history significant for cholecystectomy, gastric bypass surgery, recent bowel resection secondary to internal hernia who presents ER today complaining of periumbilical abdominal discomfort x1 day. Patient reports that she is had nausea with decreased p.o. intake. Patient denies any vomiting. Patient has any diarrhea. Patient reports her last bowel movement was approximately 7 days ago which is normal for her. Patient denies any dysuria, frequency, urgency. Patient has any fevers, shakes, chills. Patient has any cough cold runny nose. Patient has any known coronavirus exposures or coronavirus concerns. Patient presents ER today secondary to concerns that her pain may be secondary to recurrence of the internal hernia that she was seen and evaluated for in May. Patient reports that she ended up going up to her gastric bypass doctor and required surgery. Patient denies any history of hypertension, diabetes, liver, lung, kidney problems. Patient denies any tobacco alcohol or drugs. Patient has no known drug allergies. Patient reports no NSAIDs secondary to her gastric bypass. Review of systems: As per history of present illness and below otherwise all systems reviewed and negative. Past medical history: As per history of present illness and as reviewed below otherwise noncontributory. Surgical history: As per history of present illness and as reviewed below otherwise noncontributory. Social history: No reported history of drug or alcohol abuse. Family history: As per history of present illness and as reviewed below otherwise noncontributory. Physical exam: Constitutional: Patient is oriented to person, place, and time. Appears well- developed and well-nourished. No distress. HEENT: Moist mucous membranes Head: Normocephalic and atraumatic Eyes: Right eye exhibits no discharge. Left eye exhibits no discharge. No scleral icterus Neck: Normal range of motion. No tracheal deviation present. Cardiovascular: Normal rate and regular rhythm. Pulmonary: Effort normal, no respiratory distress. Abd: Soft, nondistended, no rebound/guarding, no psoas or obturator signs, no tenderness at Mcberney's point, no Hernandez's sign. Pt does not present with an exam that would be consistent with an acute surgical abdomen at this time, moderate tenderness palpation periumbilical region. Musculoskeletal: Normal range of motion Neurologic: Alert and oriented to person, place and time. Skin: [place], warm and dry. Psychiatric: Normal mood and affect. Behavior is normal. Judgment and thought content normal. Nursing note and vital signs have been reviewed Diagnostics: CBC, CMP, lipase within normal limits. Urinalysis within normal limits. CT of the abdomen pelvis with IV and p.o. contrast reveals no significant pathology. Therapeutics: Lorena Rosado, KASEY Assessment and plan: 35-year-old female who presents ER today with abdominal pain. Patient has a history significant for an internal hernia that was diagnosed here in May. Patient reports that he required surgery and bowel resection x2 for repair. Patient presents ER today concerned about recurrence of the internal hernia of her bowels. Patient's ER work-up was significant for a moderate amount of tenderness to palpation. Patient does not present with any signs or symptoms that would be concerning for an acute surgical abdomen. Patient's ER work-up is been unremarkable. Patient CT scan of her abdomen pelvis with p.o. and IV contrast was unremarkable. Patient's CBC, CMP, lipase, urinalysis are all within normal limits. Patient has been given adequate analgesia in ED and feels much improved after IV fluids. Patient's repeat exam at 8:30 PM: Abd: Soft, nondistended, no rebound/guarding, no psoas or obturator signs, no tenderness at Mcberney's point, no Hernandez's sign. Pt does not present with an exam that would be consistent with an acute surgical abdomen at this time, minimal tenderness to palpation midepigastric region. I discussed with the patient the plan to discharge home with Neymar to assist her with the pain. Is unclear what the cause of her pain and d ingris is at this time. I have made clear to the patient that she needs to return to the ER if her pain worsens or if she has any new or concerning symptoms. I have also asked the patient to make an appointment to follow-up with her bariatric surgeon early next week for reevaluation. Reassessment at the time of disposition demonstrates that the patient is in no acute distress. The patient has remained stable throughout the entire ED visit and is without objective evidence for acute process requiring urgent intervention or hospitalization. The patient is stable for discharge, counseling is provided as documented above, discussed symptomatic treatment and specific conditions for return. I have spoken with the patient/caregiver and discussed todays findings, in addition to providing specific details for the plan of care. Questions are answered and there is agreement with the plan. Definitive disposition and diagnosis as appropriate pending reevaluation and review of above. Abdomen Pain Score (Numeric/FACES): 8 - Related Data Allergies Allergy/AdvReac Type Severity Reaction Status Date / Time latex Allergy Rash Verified 09/20/20 18:52 Home Meds: Home Meds Iron 90 mg PO DAILY 06/08/20 [History] buPROPion [Wellbutrin] 75 mg PO DAILY 06/08/20 [History] Multivitamin 1 tab PO DAILY 06/11/20 [History] Ondansetron [Zofran ODT] 4 mg PO Q6H PRN #12 tab.dis 09/20/20 [Rx] traMADol [Ultram] 50 mg PO Q6H PRN #12 tab 09/20/20 [Rx] Past Medical History HEENT History: Reports: Impaired Vision Other HEENT History: stated 8 surgeries on ears Cardiovascular History: Reports: None Respiratory History: Reports: None Gastrointestinal History: Reports: None Genitourinary History: Reports: Renal 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 Musculoskeletal History: Reports: None Neurological History: Reports: Migraines Psychiatric History: Reports: None Endocrine/Metabolic History: Reports: None Hematologic History: Reports: None Immunologic History: Reports: None Oncologic (Cancer) History: Reports: None Dermatologic History: Reports: None - Infectious Disease History Infectious Disease History: Reports: Chicken Pox - Past Surgical History HEENT Surgical History: Reports: Naso-Sinus Surgery Cardiovascular Surgical History: Reports: None Respiratory Surgical History: Reports: None GI Surgical History: Reports: Bariatric Procedure, Cholecystectomy, Hernia, Abdominal, Hernia Repair/Other Other GI Surgeries/Procedures: May 2020 Female Surgical History: Reports: Hysterectomy Endocrine Surgical History: Reports: None Neurological Surgical History: Reports: None Musculoskeletal Surgical History: Reports: Other (See Below) Other Musculoskeletal Surgeries/Procedures:: Wrist surgery, reconstructive faci al surgery Oncologic Surgical History: Reports: None Dermatological Surgical History: Reports: None Social & Family History - Family History Family Medical History: Noncontributory - Tobacco Use Tobacco Use Status *Q: Never Tobacco User - Caffeine Use Caffeine Use: Reports: None Caffeine Use Comment: 1/day - Recreational Drug Use Recreational Drug Use: No ED ROS GENERAL - Review of Systems Review Of Systems: See Below ED EXAM, GENERAL - Physical Exam Exam: See Below Course - Vital Signs Last Recorded V/S: Last Vital Signs Temp 97.2 F 09/20/20 18:53 Pulse 64 09/20/20 20:15 Resp 16 09/20/20 20:15 BP 106/47 L 09/20/20 20:15 Pulse Ox 99 09/20/20 20:15 - Orders/Labs/Meds Orders: Active Orders 24 hr Category Date Time Status Sodium Chloride 0.9% [Saline Flush] Med 09/20/20 19:12 Active 10 ml FLUSH ASDIRECTED PRN Sodium Chloride 0.9% [Saline Flush] Med 09/20/20 19:12 Active 2.5 ml FLUSH ASDIRECTED PRN Saline Lock Insert [OM.PC] Stat Oth 09/20/20 19:13 Ordered Medication Orders Sodium Chloride (Saline Flush) 10 ml FLUSH ASDIRECTED PRN PRN Reason: Keep Vein Open Last Admin: 09/20/20 19:24 Dose: 10 ml Documented by: KALE Sodium Chloride (Saline Flush) 2.5 ml FLUSH ASDIRECTED PRN PRN Reason: Keep Vein Open Last Admin: 09/20/20 19:24 Dose: 2.5 ml Documented by: KALE Labs: Laboratory Tests 09/20/20 09/20/20 09/20/20 Range/Units 18:55 18:55 20:05 WBC 8.02 (4.0-11.0) K/uL RBC 4.63 (4.30-5.90) M/uL Hgb 13.5 (12.0-16.0) g/dL Hct 40.5 (36.0-46.0) % MCV 87.5 (80.0-98.0) fL MCH 29.2 (27.0-32.0) pg MCHC 33.3 (31.0-37.0) g/dL RDW Std Deviation 43.9 (28.0-62.0) fl RDW Coeff of Farhana 14 (11.0-15.0) % Plt Count 299 (150-400) K/uL MPV 9.50 (7.40-12.00) fL Neut % (Auto) 51.8 (48.0-80.0) % Lymph % (Auto) 38.3 (16.0-40.0) % Anderson % (Auto) 7.4 (0.0-15.0) % Eos % (Auto) 2.1 (0.0-7.0) % Baso % (Auto) 0.4 (0.0-1.5) % Neut # (Auto) 4.2 (1.4-5.7) K/uL Lymph # (Auto) 3.1 H (0.6-2.4) K/uL Anderson # (Auto) 0.6 (0.0-0.8) K/uL Eos # (Auto) 0.2 (0.0-0.7) K/uL Baso # (Auto) 0.0 (0.0-0.1) K/uL Nucleated RBC % 0.0 /100WBC Nucleated RBCs # 0 K/uL Sodium 139 (136-145) mmol/L Potassium 3.4 L (3.5-5.1) mmol/L Chloride 103 (98-107) mmol/L Carbon Dioxide 25.8 (21.0-32.0) mmol/L BUN 11 (7.0-18.0) mg/dL Creatinine 0.6 (0.6-1.0) mg/dL Est Cr Clr Drug Dosing TNP Estimated GFR (MDRD) > 60.0 ml/min Glucose 76 (74-106) mg/dL Calcium 9.0 (8.5-10.1) mg/dL Total Bilirubin 0.2 (0.2-1.0) mg/dL AST 28 (15-37) IU/L ALT 65 H (14-63) IU/L Alkaline Phosphatase 92 (46-116) U/L Total Protein 8.0 (6.4-8.2) g/dL Albumin 4.1 (3.4-5.0) g/dL Globulin 3.9 (2.6-4.0) g/dL Albumin/Globulin Ratio 1.1 (0.9-1.6) Lipase 92 (73-393) U/L Urine Color YELLOW Urine Appearance CLEAR Urine pH 7.0 (5.0-8.0) Ur Specific [place] <= 1.005 (1.001-1.035) Urine Protein NEGATIVE (NEGATIVE) mg/dL Urine Glucose (UA) NEGATIVE (NEGATIVE) mg/dL Urine Ketones NEGATIVE (NEGATIVE) mg/dL Urine Occult Blood NEGATIVE (NEGATIVE) Urine Nitrite NEGATIVE (NEGATIVE) Urine Bilirubin NEGATIVE (NEGATIVE) Urine Urobilinogen 0.2 (<2.0) EU/dL Ur Leukocyte Esterase NEGATIVE (NEGATIVE) Meds: Medications Generic Name Dose Route Start Last Admin Trade Name Freq PRN Reason Stop Dose Admin Sodium Chloride 10 ml 09/20/20 19:12 09/20/20 19:24 Saline Flush FLUSH 10 ml ASDIRECTED PRN Administration Keep Vein Open Sodium Chloride 2.5 ml 09/20/20 19:12 09/20/20 19:24 Saline Flush FLUSH 2.5 ml ASDIRECTED PRN Administration Keep Vein Open Discontinued Medications Generic Name Dose Route Start Last Admin Trade Name Freq PRN Reason Stop Dose Admin Hydromorphone HCl 1 mg 09/20/20 19:22 09/20/20 19:27 Dilaudid IVPUSH 09/20/20 19:23 1 mg ONETIME ONE Administration Sodium Chloride 1,000 mls @ 999 mls/hr 09/20/20 19:12 09/20/20 19:24 Normal Saline IV 09/20/20 20:12 999 mls/hr .Bolus ONE Administration Ondansetron HCl 4 mg 09/20/20 19:12 09/20/20 19:24 Zofran IVPUSH 09/20/20 19:13 4 mg ONETIME ONE Administration Departure - Departure Time of Disposition: 20:50 Disposition: Home, Self-Care 01 Condition: Good Clinical Impression: Abdominal pain - Discharge Information Instructions: Abdominal Pain, Adult Referrals: Shefali Wilson BOLOGNA LACER [Primary Care Provider] - Additional Instructions: You were seen and evaluated today secondary to your abdominal pain. The work-up in the emergency department did not reveal a cause to the discomfort that you are feeling. Your CT scan of your abdomen and pelvis did not reveal any significant abnormalities or recurrence of the internal hernia that you had back in May. Please make an appointment to see your family doctor or your bariatric surgeon next week for reevaluation of the pain persist. If the pain worsens or if you have any other concerns please return immediately to the ER for reevaluation. You will be given a prescription for Ultram to assist you with the pain and Zofran to this you with nausea. The following information is given to patients seen in the emergency department who are being discharged to home. This information is to outline your options for follow-up care. We provide all patients seen in our emergency department with a follow-up referral. The need for follow-up, as well as the timing and circumstances, are variable depending upon the specifics of your emergency department visit. If you don't have a primary care physician on staff, we will provide you with a referral. We always advise you to contact your personal physician following an emergency department visit to inform them of the circumstance of the visit and for follow-up with them and/or the need for any referrals to a consulting specialist. The emergency department will also refer you to a specialist when appropriate. This referral assures that you have the opportunity for follow-up care with a specialist. All of these measure are taken in an effort to provide you with optimal care, which includes your follow-up. Under all circumstances we always encourage you to contact your private physician who remains a resource for coordinating your care. When calling for follow-up care, please make the office aware that this follow-up is from your recent emergency room visit. If for any reason you are refused follow-up, please contact the [facility] Emergency Department at and asked to speak to the emergency department charge nurse. [facility] [address] [place] [id number] [address] Sepsis Event Note (ED) - Evaluation Sepsis Screening Result: No Definite Risk - Focused Exam Vital Signs: Vital Signs Temp Pulse Resp BP Pulse Ox 09/20/20 20:15 64 16 106/47 L 99 09/20/20 18:53 97.2 F 95 16 140/87 100 - My Orders Last 24 Hours: My Active Orders 09/20/20 19:12 Sodium Chloride 0.9% [Saline Flush] 10 ml FLUSH ASDIRECTED PRN Sodium Chloride 0.9% [Saline Flush] 2.5 ml FLUSH ASDIRECTED PRN 09/20/20 19:13 Saline Lock Insert [OM.PC] Stat - Assessment/Plan Last 24 Hours: My Active Orders 09/20/20 19:12 Sodium Chloride 0.9% [Saline Flush] 10 ml FLUSH ASDIRECTED PRN Sodium Chloride 0.9% [Saline Flush] 2.5 ml FLUSH ASDIRECTED PRN 09/20/20 19:13 Saline Lock Insert [OM.PC] Stat
[2020-09-20 22:08] VITALS: BP 110/72; PULSE 56
== END 2020-09-20 21:18 | disposition home or self-care (01) ==
LOC: MW.ED 18:44
DX: R10.33 Periumbilical pain (principal); R11.0 Nausea; R19.7 Diarrhea, unspecified; Z90.49 Acquired absence of other specified parts of digestive tract; Z91.040 Latex allergy status; Z90.710 Acquired absence of both cervix and uterus
CPT/HCPCS: 36415; 74177; 80053; 81003; 83690; 85025; 96374; 96375; 99284; J1170; J2405; J7030

== ENCOUNTER 2021-04-13 12:22 | Emergency (ER) | payer BC ==
--- NOTE | 2021-04-13 14:11 | EDM.PDOC ---
ED HPI GENERAL MEDICAL PROBLEM - General Chief Complaint: Headache Stated Complaint: MIGRAINE Time Seen by Provider: 04/13/21 12:32 Source of Information: Reports: Patient History Limitations: Reports: No Limitations - History of Present Illness INITIAL COMMENTS - FREE TEXT/NARRATIVE: 36-year-old female past medical history migraine headaches presents for migraine headache. Patient states this feels typical of her migraine headaches. It is in her left retro-orbital face. Is been going on since last night. Not the worst headache of her life and she denies thunderclap onset. She notes that light makes it worse. She does not get auras with her headaches. She notes that she is on migraine medications but she cannot recall the names. She only takes these as needed and has tried them at home without relief. Headache Pain Score (Numeric/FACES): 9 - Related Data Allergies Allergy/AdvReac Type Severity Reaction Status Date / Time latex Allergy Rash Verified 04/13/21 14:25 Home Meds: Home Meds Iron 90 mg PO DAILY 06/08/20 [History] Multivitamin 1 tab PO DAILY 06/11/20 [History] Ondansetron [Zofran ODT] 4 mg PO Q6H PRN #12 tab.dis 09/20/20 [Rx] traMADol [Ultram] 50 mg PO Q6H PRN #12 tab 09/20/20 [Rx] Butalb/Acetaminophen/Caffeine [Fioricet 50-300-40 mg Capsule] 1 each PO Q6H PRN #12 capsule 04/13/21 [Rx] Past Medical History HEENT History: Reports: Impaired Vision Other HEENT History: stated 8 surgeries on ears Cardiovascular History: Reports: None Respiratory History: Reports: None Gastrointestinal History: Reports: None Genitourinary History: Reports: Renal 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 Musculoskeletal History: Reports: None Neurological History: Reports: Migraines Psychiatric History: Reports: None Endocrine/Metabolic History: Reports: None Hematologic History: Reports: None Immunologic History: Reports: None Oncologic (Cancer) History: Reports: None Dermatologic History: Reports: None - Infectious Disease History Infectious Disease History: Reports: Chicken Pox - Past Surgical History HEENT Surgical History: Reports: Naso-Sinus Surgery Cardiovascular Surgical History: Reports: None Respiratory Surgical History: Reports: None GI Surgical History: Reports: Bariatric Procedure, Cholecystectomy, Hernia, Abdominal, Hernia Repair/Other Other GI Surgeries/Procedures: May 2020 Female Surgical History: Reports: Hysterectomy Endocrine Surgical History: Reports: None Neurological Surgical History: Reports: None Musculoskeletal Surgical History: Reports: Other (See Below) Other Musculoskeletal Surgeries/Procedures:: Wrist surgery, reconstructive facial surgery Oncologic Surgical History: Reports: None Dermatological Surgical History: Reports: None Social & Family History - Family History Family Medical History: No Pertinent Family History - Caffeine Use Caffeine Use: Reports: None Caffeine Use Comment: 1/day ED ROS GENERAL - Review of Systems Review Of Systems: Comprehensive ROS is negative, except as noted in HPI. ED EXAM, GENERAL - Physical Exam Exam: See Below Exam Limited By: No Limitations General Appearance: Alert, WD/WN, No Apparent Distress Eye Exam: Bilateral Eye: EOMI, PERRL Ears: Hearing Grossly Normal Throat/Mouth: Normal Voice, No Airway Compromise Head: Atraumatic, Normocephalic Neck: Normal Inspection, Supple, Non-Tender Respiratory/Chest: No Respiratory Distress, Lungs Clear, Normal Breath Sounds, No Accessory Muscle Use Cardiovascular: Normal Peripheral Pulses, Regular Rate, Rhythm Extremities: Normal Inspection Neurological: Alert, Oriented, CN II-XII Intact, Normal Cognition, Normal Gait, No Motor/Sensory Deficits Psychiatric: Normal Affect, Normal Mood Skin Exam: Warm, Dry, Intact, Normal Color Course - Vital Signs Last Recorded V/S: Last Vital Signs Temp 97.6 F 04/13/21 14:15 Pulse 55 L 04/13/21 14:49 Resp 18 04/13/21 14:49 BP 109/73 04/13/21 14:15 Pulse Ox 100 04/13/21 14:49 - Orders/Labs/Meds Orders: Active Orders 24 hr Category Date Time Status Sodium Chloride 0.9% [Normal Saline] 1,000 ml Med 04/13/21 14:24 Active IV .Bolus Sodium Chloride 0.9% [Saline Flush] Med 04/13/21 14:24 Active 10 ml FLUSH ASDIRECTED PRN Sodium Chloride 0.9% [Saline Flush] Med 04/13/21 14:24 Active 2.5 ml FLUSH ASDIRECTED PRN Saline Lock Insert [OM.PC] Stat Oth 04/13/21 14:24 Ordered Medication Orders Sodium Chloride (Normal Saline) 1,000 mls @ 999 mls/hr IV .Bolus ONE Stop: 04/13/21 15:24 Last Admin: 04/13/21 14:43 Dose: 999 mls/hr Documented by: [id number] Sodium Chloride (Sodium Chloride 0.9% 10 Ml Syringe) 10 ml FLUSH ASDIRECTED PRN PRN Reason: Keep Vein Open Last Admin: 04/13/21 14:46 Dose: 10 ml Documented by: [id number] Sodium Chloride (Sodium Chloride 0.9% 2.5 Ml Syringe) 2.5 ml FLUSH ASDIRECTED PRN PRN Reason: Keep Vein Open Last Admin: 04/13/21 14:46 Dose: 2.5 ml Documented by: [id number] Meds: Medications Generic Name Dose Route Start Last Admin Trade Name Freq PRN Reason Stop Dose Admin Sodium Chloride 1,000 mls @ 999 mls/hr 04/13/21 14:24 04/13/21 14:43 Normal Saline IV 04/13/21 15:24 999 mls/hr .Bolus ONE Administration Sodium Chloride 10 ml 04/13/21 14:24 04/13/21 14:46 Sodium Chloride 0.9% 10 Ml Syringe FLUSH 10 ml ASDIRECTED PRN Administration Keep Vein Open Sodium Chloride 2.5 ml 04/13/21 14:24 04/13/21 14:46 Sodium Chloride 0.9% 2.5 Ml Syringe FLUSH 2.5 ml ASDIRECTED PRN Administration Keep Vein Open Discontinued Medications Generic Name Dose Route Start Last Admin Trade Name [place] PRN Reason Stop Dose Admin Diphenhydramine HCl 50 mg 04/13/21 14:24 04/13/21 14:43 Diphenhydramine 50 Mg/Ml Sdv IVPUSH 04/13/21 14:25 50 mg ONETIME ONE Administration Ketorolac Tromethamine 15 mg 04/13/21 14:24 04/13/21 14:43 Ketorolac 15 Mg/Ml Sdv IVPUSH 04/13/21 14:25 15 mg STAT STA Administration Metoclopramide HCl 10 mg 04/13/21 14:24 04/13/21 14:43 Metoclopramide 10 Mg/2 Ml Sdv IVPUSH 04/13/21 14:25 10 mg ONETIME ONE Administration - Re-Assessments/Exams Free Text/Narrative Re-Assessment/Exam: 04/13/21 15:22 Patient's pain is greatly improved. She is sleeping comfortably. Will discharge with short course of Fioricet. Departure - Departure Time of Disposition: 15:23 Disposition: Home, Self-Care 01 Condition: Good Clinical Impression: Migraine Qualifiers: Migraine type: unspecified Status migrainosus presence: without status migrainosus Intractability: not intractable Qualified Code(s): G43.909 - Migraine, unspecified, not intractable, without status migrainosus - Discharge Information Prescriptions: Butalb/Acetaminophen/Caffeine [Fioricet 50-300-40 mg Capsule] 1 each PO Q6H PRN #12 capsule PRN Reason: headache Instructions: Recurrent Migraine Headache Referrals: PCP,None [Primary Care Provider] - Forms: ED Department Discharge Additional Instructions: I sent a prescription to the pharmacy for medication called Fioricet. This is often used for acute migraine headaches and might be helpful for you. If your headache becomes severe or you have a suddenly changing worst headache of life then you should come back to the emergency department. The following information is given to patients seen in the emergency department who are being discharged to home. This information is to outline your options for follow-up care. We provide all patients seen in our emergency department with a follow-up referral. The need for follow-up, as well as the timing and circumstances, are variable depending upon the specifics of your emergency department visit. If you don't have a primary care physician on staff, we will provide you with a referral. We always advise you to contact your personal physician following an emergency department visit to inform them of the circumstance of the visit and for follow-up with them and/or the need for any referrals to a consulting specialist. The emergency department will also refer you to a specialist when appropriate. This referral assures that you have the opportunity for follow-up care with a specialist. All of these measure are taken in an effort to provide you with optimal care, which includes your follow-up. Under all circumstances we always encourage you to contact your private physician who remains a resource for coordinating your care. When calling for follow-up care, please make the office aware that this follow-up is from your recent emergency room visit. If for any reason you are refused follow-up, please contact the [facility] Emergency Department at and asked to speak to the emergency department charge nurse. Please follow up with your primary care physician. If you do not have a primary care physician, see below: [facility] [address], [place] [address] [facility] [address] [place] [address] [facility] [address] [place] [address] Sepsis Event Note (ED) - Focused Exam Vital Signs: Vital Signs Temp Pulse Resp BP Pulse Ox 04/13/21 14:49 55 L 18 100 04/13/21 14:15 97.6 F 70 109/73 100 - My Orders Last 24 Hours: My Active Orders 04/13/21 14:24 Sodium Chloride 0.9% [Normal Saline] 1,000 ml IV .Bolus Sodium Chloride 0.9% [Saline Flush] 10 ml FLUSH ASDIRECTED PRN Sodium Chloride 0.9% [Saline Flush] 2.5 ml FLUSH ASDIRECTED PRN Saline Lock Insert [OM.PC] Stat - Assessment/Plan Last 24 Hours: My Active Orders 04/13/21 14:24 Sodium Chloride 0.9% [Normal Saline] 1,000 ml IV .Bolus Sodium Chloride 0.9% [Saline Flush] 10 ml FLUSH ASDIRECTED PRN Sodium Chloride 0.9% [Saline Flush] 2.5 ml FLUSH ASDIRECTED PRN Saline Lock Insert [OM.PC] Stat
[2021-04-13] MEDS ORDERED: Sodium Chloride 0.9% 2.5 ML Syringe FLUSH PRN (14:24)
[2021-04-13] MEDS ORDERED: Sodium Chloride 0.9% 1,000 ML IV ONE (14:24)
[2021-04-13] MEDS ORDERED: Metoclopramide 10 MG/2 ML SDV IVPUSH ONE (14:24)
[2021-04-13] MEDS ORDERED: Ketorolac 15 MG/ML SDV IVPUSH STA (14:24)
[2021-04-13] MEDS ORDERED: Sodium Chloride 0.9% 10 ML Syringe FLUSH PRN (14:24)
[2021-04-13] MEDS ORDERED: diphenhydrAMINE 50 MG/ML SDV IVPUSH ONE (14:24)
[2021-04-13 17:00] VITALS: BP 113/71; PULSE 56
== END 2021-04-13 15:39 | disposition home or self-care (01) ==
LOC: MW.ED 12:22
DX: G43.909 Migraine, unspecified, not intractable, without status migrainosus (principal); Z91.040 Latex allergy status
CPT/HCPCS: 96374; 96375; 99283; J1200; J1885; J2765; J7030

== ENCOUNTER 2021-05-27 16:41 | Emergency (ER) | payer BC ==
[2021-05-27] MEDS ORDERED: Sodium Chloride 0.9% 10 ML Syringe FLUSH PRN (16:47)
[2021-05-27] MEDS ORDERED: Sodium Chloride 0.9% 2.5 ML Syringe FLUSH PRN (16:47)
[2021-05-27] MEDS ORDERED: Morphine 4 MG/ML Syringe IVPUSH ONE (17:08)
[2021-05-27] MEDS ORDERED: Ondansetron 4 MG/2 ML SDV IVPUSH ONE (17:08)
[2021-05-27] MEDS ORDERED: Sodium Chloride 0.9% 1,000 ML IV ONE (17:08)
--- NOTE | 2021-05-27 17:11 | EDM.PDOC ---
ED HPI GENERAL MEDICAL PROBLEM - General Chief Complaint: Abdominal Pain Stated Complaint: STOMACH PAIN Time Seen by Provider: 05/27/21 16:45 Source of Information: Reports: Patient History Limitations: Reports: No Limitations - History of Present Illness INITIAL COMMENTS - FREE TEXT/NARRATIVE: HISTORY AND PHYSICAL: History of present illness: Patient is a 36-year-old female who presents to the emergency room with complaints of right lower quadrant pain, nausea and diarrhea. She states last evening she started to have some loose stools. This afternoon she went to the bathroom to void and felt right lower quadrant pain immediately after. The area is tender to touch. Pain now radiates to the left upper quadrant. She does have some nausea associated with this without vomiting. Patient denies any fever, chills, headache, change in vision, syncope or near syncope. Denies any chest pain, back pain, shortness of breath or cough. Denies any constipation, dysuria, or concern of STI or (hx hysterectomy). Has not noted any blood in urine or stool. Patient had been eating and drinking appropriately. Review of systems: As per history of present illness and below otherwise all systems reviewed and negative. Past medical history: As per history of present illness and as reviewed below otherwise noncontributory. Surgical history: As per history of present illness and as reviewed below otherwise noncontributory. Social history: See social history for further information Family history: As per history of present illness and as reviewed below otherwise noncontributory. Physical exam: General: Well developed and well nourished. Alert and orientated x 3. Nontoxic in appearance and in no acute distress. Vital signs are stable and have been reviewed by me. Nursing notes were reviewed. HEENT: Atraumatic, normocephalic, pupils equal and reactive bilaterally, negative for conjunctival pallor or scleral icterus, mucous membranes moist, trachea midline. No drooling or trismus noted. No meningeal signs. No hot potato voice noted. Lungs: Clear to auscultation bilaterally. No wheezes, rales, or rhonchi. Chest nontender. Normal work of breathing, no accessory muscles used. Heart: S1S2, regular rate and rhythm without overt murmur, gallops, or rubs. No JVD. No peripheral edema Abdomen: Soft, nondistended, RLQ pain with rebound tenderness. Normoactive bowel sounds. Negative for masses or costovertebral tenderness. Pelvis: Stable nontender. Skin: Intact, warm, dry. No lesions or rashes noted. Hematologic: No petechiae or purpra. Mucosa appropriate color and normal nail bed color and refill. Extremities: Atraumatic, moves all extremities per self without difficulty or deficits, negative for cords or calf pain. Neurovascular unremarkable. Neuro: Awake, alert, oriented. Cranial nerves II through XII unremarkable. Cerebellum unremarkable. Motor and sensory unremarkable throughout. Exam nonfocal. Psychiatric: Mood and affect are appropriate. Normal thought process. Answering questions appropriately. Notes: *This patient was seen and evaluated during the 2019 SARS-CoV-2 novel coronavirus pandemic period. Community viral transmission is ongoing at time of this encounter and the emergency department is operating under pandemic response procedures. Patient is a 36-year-old female who presents to the emergency room with complaints of right lower quadrant abdominal pain, nausea and diarrhea. Patient's physical exam she does have some right lower quadrant tenderness to palpation. She has no concern for , history of hysterectomy. She is agreeable to lab work. She would like something for pain and nausea at this time. Patient's lab work is unremarkable. She does have a slightly low calcium and potassium. The appendix is not seen. No secondary signs of acute appendicitis identified. No acute intra-abdominal inflammatory process identified. Large amount of feces in the colon. Status post cholecystectomy, gastric bypass procedure, and hysterectomy. I have talked with the patient about today's findings, in addition to providing specific details for plan of care. We discussed that if her right lower quadrant pain should return, worsen and/or she develops a fever she should follow-up either in the ER or with her primary care tomorrow for evaluation of appendicitis. At this time my suspicion is low and she does not have a white count and her pain has improved. Reassessment at the time of disposition demonstrates that the patient is in no acute distress. The patient is stable for discharge, counseling was provided and we discussed in great detail signs and symptoms that would prompt them to return to the Emergency Department. Medication, follow up and supportive care measures were reviewed and discussed. Voices understanding and is agreeable to plan of care. Denies any further questions or concerns at this time. Diagnostics: CBC, CMP, Lipase, UA, CT abd/pelvis Therapeutics: IV fluids, Zofran, Morphine, K-Dur Prescription: Zofran Impression: Abdominal Pain Hypokalemia Plan: 1. You were evaluated today on an emergent basis. Your lab work is unremarkable. The CT could not fully see the appendix although there are no secondary signs of acute appendicitis. There is a large amount of stool in the colon. I would like you to use an [id number] modality to help facilitate a bowel movement. If your symptoms should worsen, new symptoms develop or any of the signs and symptoms we discussed should arise please return to the emergency room or call 911 (if needed). 2. Zofran as needed for nausea. You can alternate Tylenol and ibuprofen as needed for pain and fever management. 3. We encourage you to follow up with your primary care provider and/or recommended specialist in the next few days for re-evaluation and further care/management. Definitive disposition and diagnosis as appropriate pending reevaluation and review of above. abdomen Pain Score (Numeric/FACES): 8 - Related Data Allergies Allergy/AdvReac Type Severity Reaction Status Date / Time latex Allergy Rash Verified 05/27/21 17:12 Home Meds: Home Meds Iron 90 mg PO DAILY 06/08/20 [History] Multivitamin 1 tab PO DAILY 06/11/20 [History] Ondansetron [Zofran ODT] 4 mg PO Q6H PRN #12 tab.dis 09/20/20 [Rx] traMADol [Ultram] 50 mg PO Q6H PRN #12 tab 09/20/20 [Rx] Butalb/Acetaminophen/Caffeine [Fioricet 50-300-40 mg Capsule] 1 each PO Q6H PRN #12 capsule 04/13/21 [Rx] Past Medical History HEENT History: Reports: Impaired Vision Other HEENT History: stated 8 surgeries on ears Cardiovascular History: Reports: None Respiratory History: Reports: None Gastrointestinal History: Reports: None Genitourinary History: Reports: Renal Calculus 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 Musculoskeletal History: Reports: None Neurological History: Reports: Migraines Psychiatric History: Reports: None Endocrine/Metabolic History: Reports: None Hematologic History: Reports: None Immunologic History: Reports: None Oncologic (Cancer) History: Reports: None Dermatologic History: Reports: None - Infectious Disease History Infectious Disease History: Reports: Chicken Pox - Past Surgical History HEENT Surgical History: Reports: Naso-Sinus Surgery Other HEENT Surgeries/Procedures: Deviated Septum, polyp removed Cardiovascular Surgical History: Reports: None Respiratory Surgical History: Reports: None GI Surgical History: Reports: Bariatric Procedure, Cholecystectomy, Hernia, Abdominal, Hernia Repair/Other Other GI Surgeries/Procedures: May 2020 Female Surgical History: Reports: Hysterectomy Other Female Surgeries/Procedures: January 15, 2015 Endocrine Surgical History: Reports: None Neurological Surgical History: Reports: None Musculoskeletal Surgical History: Reports: Other (See Below) Other Musculoskeletal Surgeries/Procedures:: Wrist surgery, reconstructive facial surgery Oncologic Surgical History: Reports: None Dermatological Surgical History: Reports: None Social & Family History - Family History Family Medical History: No Pertinent Family History - Caffeine Use Caffeine Use: Reports: None Caffeine Use Comment: 1/day ED ROS GENERAL - Review of Systems Review Of Systems: Comprehensive ROS is negative, except as noted in HPI. ED EXAM, GI/ABD - Physical Exam Exam: See Below (See dictation) Course - Vital Signs Last Recorded V/S: Last Vital Signs Temp 98.1 F 05/27/21 18:38 Pulse 81 05/27/21 18:38 Resp 18 05/27/21 18:38 BP 98/54 L 05/27/21 18:38 Pulse Ox 98 05/27/21 18:38 - Orders/Labs/Meds Orders: Active Orders 24 hr Category Date Time Status Sodium Chloride 0.9% [Saline Flush] Med 05/27/21 16:47 Active 10 ml FLUSH ASDIRECTED PRN Sodium Chloride 0.9% [Saline Flush] Med 05/27/21 16:47 Active 2.5 ml FLUSH ASDIRECTED PRN Saline Lock Insert [OM.PC] Stat Oth 05/27/21 16:47 Ordered Medication Orders Sodium Chloride (Sodium Chloride 0.9% 10 Ml Syringe) 10 ml FLUSH ASDIRECTED PRN PRN Reason: Keep Vein Open Last Admin: 05/27/21 17:19 Dose: 10 ml Documented by: YEVGENIY Sodium Chloride (Sodium Chloride 0.9% 2.5 Ml Syringe) 2.5 ml FLUSH ASDIRECTED PRN PRN Reason: Keep Vein Open Last Admin: 05/27/21 17:19 Dose: 2.5 ml Documented by: YEVGENIY Labs: Laboratory Tests 05/27/21 05/27/2121 Range/Units 17:20 17:20 18:00 WBC 7.30 (4.0-11.0) K/uL RBC 4.22 L (4.30-5.90) M/uL Hgb 12.5 (12.0-16.0) g/dL Hct 36.9 (36.0-46.0) % MCV 87.4 (80.0-98.0) fL MCH 29.6 (27.0-32.0) pg MCHC 33.9 (31.0-37.0) g/dL RDW Std Deviation 43.5 (28.0-62.0) fl RDW Coeff of Farhana 14 (11.0-15.0) % Plt Count 254 (150-400) K/uL MPV 9.60 (7.40-12.00) fL Neut % (Auto) 59.7 (48.0-80.0) % Lymph % (Auto) 31.0 (16.0-40.0) % [place] % (Auto) 7.5 (0.0-15.0) % Eos % (Auto) 1.5 (0.0-7.0) % Baso % (Auto) 0.3 (0.0-1.5) % Neut # (Auto) 4.4 (1.4-5.7) K/uL Lymph # (Auto) 2.3 (0.6-2.4) K/uL [place] # (Auto) 0.6 (0.0-0.8) K/uL Eos # (Auto) 0.1 (0.0-0.7) K/uL Baso # (Auto) 0.0 (0.0-0.1) K/uL Nucleated RBC % 0.0 /100WBC Nucleated RBCs # 0 K/uL Sodium 141 (136-145) mmol/L Potassium 3.2 L (3.5-5.1) mmol/L Chloride 105 (98-107) mmol/L Carbon Dioxide 24.4 (21.0-32.0) mmol/L BUN 10 (7.0-18.0) mg/dL Creatinine 0.7 (0.6-1.0) mg/dL Est Cr Clr Drug Dosing 98.05 mL/min Estimated GFR (MDRD) > 60.0 ml/min Glucose 139 H (74-106) mg/dL Calcium 8.1 L (8.5-10.1) mg/dL Total Bilirubin 0.3 (0.2-1.0) mg/dL AST 22 (15-37) IU/L ALT 43 (14-63) IU/L Alkaline Phosphatase 67 (46-116) U/L Total Protein 7.3 (6.4-8.2) g/dL Albumin 3.7 (3.4-5.0) g/dL Globulin 3.6 (2.6-4.0) g/dL Albumin/Globulin Ratio 1.0 (0.9-1.6) Lipase 71 L (73-393) U/L Urine Color YELLOW Urine Appearance CLEAR Urine pH 6.0 (5.0-8.0) Ur Specific [facility] <= 1.005 (1.001-1.035) Urine Protein NEGATIVE (NEGATIVE) mg/dL Urine Glucose (UA) NEGATIVE (NEGATIVE) mg/dL Urine Ketones NEGATIVE (NEGATIVE) mg/dL Urine Occult Blood NEGATIVE (NEGATIVE) Urine Nitrite NEGATIVE (NEGATIVE) Urine Bilirubin NEGATIVE (NEGATIVE) Urine Urobilinogen 0.2 (<2.0) EU/dL Ur Leukocyte Esterase NEGATIVE (NEGATIVE) Meds: Medications Generic Name Dose Route Start Last Admin Trade Name Freq PRN Reason Stop Dose Admin Sodium Chloride 10 ml 05/27/21 16:47 05/27/21 17:19 Sodium Chloride 0.9% 10 Ml Syringe FLUSH 10 ml ASDIRECTED PRN Administration Keep Vein Open Sodium Chloride 2.5 ml 05/27/21 16:47 05/27/21 17:19 Sodium Chloride 0.9% 2.5 Ml Syringe FLUSH 2.5 ml ASDIRECTED PRN Administration Keep Vein Open Discontinued Medications Generic Name Dose Route Start Last Admin Trade Name Freq PRN Reason Stop Dose Admin Sodium Chloride 1,000 mls @ 999 mls/hr 05/27/21 17:08 05/27/21 17:19 Normal Saline IV 05/27/21 18:08 999 mls/hr STAT ONE Administration Morphine Sulfate 4 mg 05/27/21 17:08 05/27/21 17:19 Morphine 4 Mg/Ml Syringe IVPUSH 05/27/21 17:09 4 mg ONETIME ONE Administration Ondansetron HCl 4 mg 05/27/21 17:08 05/27/21 17:19 Ondansetron 4 Mg/2 Ml Sdv IVPUSH 05/27/21 17:09 4 mg ONETIME ONE Administration Departure - Departure Time of Disposition: 19:29 Disposition: Home, Self-Care 01 Clinical Impression: Hypokalemia Abdominal pain Qualifiers: Abdominal location: right lower quadrant Qualified Code(s): R10.31 - Right lower quadrant pain - Discharge Information Instructions: Abdominal Pain, Adult, [id number] Referrals: PCP,None [Primary Care Provider] - Forms: ED Department Discharge Additional Instructions: The following information is given to patients seen in the emergency department who are being discharged to home. This information is to outline your options for follow-up care. We provide all patients seen in our emergency department with a follow-up referral. The need for follow-up, as well as the timing and circumstances, are variable depending upon the specifics of your emergency department visit. If you don't have a primary care physician on staff, we will provide you with a referral. We always advise you to contact your personal physician following an emergency department visit to inform them of the circumstance of the visit and for follow-up with them and/or the need for any referrals to a consulting specialist. The emergency department will also refer you to a specialist when appropriate. This referral assures that you have the opportunity for follow-up care with a specialist. All of these measure are taken in an effort to provide you with optimal care, which includes your follow-up. Under all circumstances we always encourage you to contact your private physician who remains a resource for coordinating your care. When calling for follow-up care, please make the office aware that this follow-up is from your recent emergency room visit. If for any reason you are refused follow-up, please contact the [facility] Emergency Department at and asked to speak to the emergency department charge nurse. [facility] [address] [place] [id number] [address] Thank you for choosing the [facility] emergency department in [place] for your medical needs today. It was a pleasure caring for you. Today you were seen in the emergency department for abdominal pain. 1. You were evaluated today on an emergent basis. Your lab work is unremarkable. The CT could not fully see the appendix although there are no secondary signs of acute appendicitis. There is a large amount of stool in the colon. I would like you to use an [id number] modality to help facilitate a bowel movement. If your symptoms should worsen, new symptoms develop or any of the signs and symptoms we discussed should arise please return to the emergency room or call 911 (if needed). 2. Zofran as needed for nausea. You can alternate Tylenol and ibuprofen as needed for pain and fever management. 3. We encourage you to follow up with your primary care provider and/or recommended specialist in the next few days for re-evaluation and further care/management. Sepsis Event Note (ED) - Focused Exam Vital Signs: Vital Signs Temp Pulse Resp BP Pulse Ox 05/27/21 18:38 98.1 F 81 18 98/54 L 98 05/27/21 17:40 98.2 F 72 18 133/72 99 05/27/21 17:05 98.2 F 95 16 129/70 100 - My Orders Last 24 Hours: My Active Orders 05/27/21 16:47 Sodium Chloride 0.9% [Saline Flush] 10 ml FLUSH ASDIRECTED PRN Sodium Chloride 0.9% [Saline Flush] 2.5 ml FLUSH ASDIRECTED PRN Saline Lock Insert [OM.PC] Stat - Assessment/Plan Last 24 Hours: My Active Orders 05/27/21 16:47 Sodium Chloride 0.9% [Saline Flush] 10 ml FLUSH ASDIRECTED PRN Sodium Chloride 0.9% [Saline Flush] 2.5 ml FLUSH ASDIRECTED PRN Saline Lock Insert [OM.PC] Stat
[2021-05-27 18:03] LABS: BLOOD UREA NITROGEN,BUN 10 mg/dL (7.0-18.0); CARBON DIOXIDE,CO2 24.4 mmol/L (21.0-32.0); CHLORIDE,CL 105 mmol/L (98-107); GLUCOSE RANDOM 139 mg/dL (74-106); LIPASE 71 U/L (73-393); POTASSIUM,K 3.2 mmol/L (3.5-5.1); SODIUM,NA 141 mmol/L (136-145)
[2021-05-27 18:39] VITALS: BP 98/54; PULSE 81
--- NOTE | 2021-05-27 19:26 | CT ---
INDICATION: Right lower quadrant pain TECHNIQUE: CT abdomen and pelvis with 100 cc Isovue 370 contrast. COMPARISON: September 20, 2020 FINDINGS: Lower chest: Unremarkable. Liver: Unremarkable. Spleen: Unremarkable. Pancreas: Unremarkable. Gallbladder and bile ducts: S/p cholecystectomy. Adrenal glands: Unremarkable. Kidneys: Unremarkable. No kidney or ureteral stones and no hydronephrosis. GI tract: Status post gastric bypass procedure. Large amount of feces in the colon. Appendix is not seen. Vascular structures: Unremarkable. Lymph nodes: Unremarkable. Miscellaneous: Unremarkable. No free air or significant free fluid. Pelvic Organs: Status post hysterectomy. Bones: Unremarkable for age. IMPRESSION: The appendix is not seen. No secondary signs of acute appendicitis identified. No acute intra-abdominal inflammatory process identified. Large amount of feces in the colon. Status post cholecystectomy, gastric bypass procedure, and hysterectomy. Please note that all CT scans at this facility use dose modulation, iterative reconstruction, and/or weight-based dosing when appropriate to reduce radiation dose to as low as reasonably achievable. Dictated by Trudi Gutiérrez MD @ 05/27/2021 7:24:[address] Trudi Gutiérrez @ May 27 2021 7:24PM
[2021-05-27] MEDS ORDERED: Potassium Chloride 20 MEQ Tab.ER PO ONE (19:29)
== END 2021-05-27 19:43 | disposition home or self-care (01) ==
LOC: MW.ED 16:41
DX: E87.6 Hypokalemia (principal); R10.31 Right lower quadrant pain; Z91.040 Latex allergy status; Z79.899 Other long term (current) drug therapy
CPT/HCPCS: 36415; 74177; 80053; 81003; 83690; 85025; 96374; 96375; 99284; A9270; J2270; J2405; J7030

== ENCOUNTER 2022-05-24 13:51 | Emergency (ER) | payer BC ==
[2022-05-24] MEDS ORDERED: Sodium Chloride 0.9% 2.5 ML Syringe FLUSH PRN (13:58)
[2022-05-24] MEDS ORDERED: Sodium Chloride 0.9% 1,000 ML IV ONE (13:58)
[2022-05-24] MEDS ORDERED: Sodium Chloride 0.9% 10 ML Syringe FLUSH PRN (13:58)
[2022-05-24] MEDS ORDERED: HYDROmorphone 1 MG/ML Syringe IVPUSH ONE (14:20)
[2022-05-24] MEDS ORDERED: Ondansetron 4 MG/2 ML SDV IVPUSH ONE (14:20)
[2022-05-24 14:51] LABS: BLOOD UREA NITROGEN,BUN 12 mg/dL (7.0-18.0); CARBON DIOXIDE,CO2 16.4 mmol/L (21.0-32.0); CHLORIDE,CL 105 mmol/L (98-107); GLUCOSE RANDOM 152 mg/dL (74-106); POTASSIUM,K 3.1 mmol/L (3.5-5.1); SODIUM,NA 138 mmol/L (136-145)
[2022-05-24 14:52] LABS: ESTIMATED GFR 96 mL/min (>60)
[2022-05-24] MEDS ORDERED: Iopamidol 755 MG/ML 500 ML Multipack Bottle IVPUSH STA (15:46)
[2022-05-24] MEDS ORDERED: HYDROmorphone 2 MG/ML Syringe IVPUSH ONE (16:55)
[2022-05-24] MEDS ORDERED: Piperacillin/Tazobactam 4.5 GM in Sodium Chloride 0.9% 100 ML IV ONE (17:41)
[2022-05-24 19:30] VITALS: BP 108/69; PULSE 72
== END 2022-05-24 20:41 ==
LOC: MW.ED 13:51
DX: K56.2 Volvulus (principal); Z91.040 Latex allergy status; Z98.84 Bariatric surgery status
CPT/HCPCS: 36415; 71045; 74177; 80053; 83605; 83690; 83735; 85025; 87040; 93005; 96361; 96365; 96375; 96376; 99285; J1170; J2405; J2543; J3490; J7030; Q9967; 93010

== ENCOUNTER 2023-01-02 09:28 | Emergency (ER) | payer BC ==
[2023-01-02] MEDS ORDERED: diphenhydrAMINE 50 MG/ML SDV IVPUSH ONE (09:49)
[2023-01-02] MEDS ORDERED: Sodium Chloride 0.9% 1,000 ML IV ONE (09:49)
[2023-01-02] MEDS ORDERED: HYDROmorphone 1 MG/ML Syringe IVPUSH ONE (09:49)
[2023-01-02] MEDS ORDERED: Metoclopramide 10 MG/2 ML SDV IVPUSH ONE (09:49)
[2023-01-02] MEDS ORDERED: Iopamidol 755 MG/ML 500 ML Multipack Bottle IVPUSH ONE (10:11)
[2023-01-02 10:16] LABS: BLOOD UREA NITROGEN,BUN 6 mg/dL (7.0-18.0); CARBON DIOXIDE,CO2 28.2 mmol/L (21.0-32.0); CHLORIDE,CL 103 mmol/L (98-107); GLUCOSE RANDOM 93 mg/dL (74-106); POTASSIUM,K 3.6 mmol/L (3.5-5.1); SODIUM,NA 141 mmol/L (136-145)
[2023-01-02 10:21] LABS: ESTIMATED GFR 117 mL/min (>60)
[2023-01-02 10:36] LABS: CORONAVIRUS COVID-19 NAA NEGATIVE (NEGATIVE); INFLUENZA A NAA NEGATIVE (NEGATIVE); INFLUENZA B NAA NEGATIVE (NEGATIVE)
[2023-01-02] MEDS ORDERED: Ketorolac 30 MG/ML SDV IVPUSH ONE (10:59)
[2023-01-02] MEDS ORDERED: HYDROmorphone 2 MG/ML Syringe IVPUSH ONE (11:09)
[2023-01-02 13:15] VITALS: BP 112/68; PULSE 58
== END 2023-01-02 11:34 | disposition home or self-care (01) ==
LOC: MW.ED 09:28
DX: R51.9 Headache, unspecified (principal); Z91.040 Latex allergy status; Z20.822 Contact with and (suspected) exposure to COVID-19
CPT/HCPCS: 0240U; 36415; 70450; 70496; 70498; 80053; 83735; 84703; 85025; 86140; 96361; 96374; 96375; 96376; 99284; J1170; J1200; J1885; J2765; J7030; Q9967

== ENCOUNTER 2023-11-08 03:58 | Emergency (ER) | payer BC ==
[2023-11-08] MEDS ORDERED: Sodium Chloride 0.9% 2.5 ML Syringe FLUSH PRN (04:02)
[2023-11-08] MEDS ORDERED: Sodium Chloride 0.9% 10 ML Syringe FLUSH PRN (04:02)
[2023-11-08] MEDS ORDERED: Ondansetron 4 MG/2 ML SDV IVPUSH ONE ×2 (04:08→19:18)
[2023-11-08 04:16] LABS: BASOPHILS ABSOLUTE AUTO 0.05 K/uL (0.00-0.20); BASOPHILS PERCENT AUTO 0.5 % (0.0-1.0); EOSINOPHILS ABSOLUTE AUTO 0.17 K/uL (0.00-0.45); EOSINOPHILS PERCENT AUTO 1.6 % (0.0-6.0); HEMATOCRIT 37.1 % (37.0-47.0); HEMOGLOBIN 12.5 g/dL (12.0-16.0); IMMATURE GRAN ABSOLUTE AUTO 0.02 K/uL (0.00-0.05); IMMATURE GRAN PERCENT AUTO 0.2 % (0.0-0.4); LYMPHOCYTES PERCENT AUTO 39.1 % (24.0-44.0); MEAN CORPUSCULAR HEMOGLOBIN 26.8 pg (28.0-32.0); MEAN CORPUSCULAR HGB CONC 33.7 g/dL (32.0-36.0); MEAN CORPUSCULAR VOLUME 79.4 fL (83.0-99.0); MEAN PLATELET VOLUME 8.8 fL (9.4-12.3); MONOCYTES ABSOLUTE AUTO 0.79 K/uL (0.00-0.80); MONOCYTES PERCENT AUTO 7.5 % (0.0-8.0); NEUTROPHILS ABSOLUTE AUTO 5.36 K/uL (1.80-7.70); NEUTROPHILS PERCENT AUTO 51.1 % (41.0-71.0); PLATELET COUNT,PLT 327 K/uL (150-400); RED BLOOD CELL COUNT 4.67 M/uL (4.10-5.30); WHITE BLOOD CELL COUNT,WBC 10.49 K/uL (3.9-11.3)
[2023-11-08] MEDS ORDERED: Morphine 4 MG/ML Syringe IVPUSH ONE (04:17)
[2023-11-08 04:38] LABS: A/G RATIO 0.9 (0.9-1.6); ALBUMIN 3.7 g/dL (3.4-5.0); BILIRUBIN TOTAL 0.3 mg/dL (0.2-1.0); CALCIUM 8.9 mg/dL (8.5-10.1); CARBON DIOXIDE,CO2 28.2 mmol/L (21.0-32.0); CREATININE 0.7 mg/dL (0.6-1.0); EST CRCL DRUG DOSING (CG) 100.01 mL/min; POTASSIUM,K 4.4 mmol/L (3.5-5.1); PROTEIN TOTAL,TP 7.7 g/dL (6.4-8.2)
[2023-11-08 04:43] LABS: LACTIC ACID 1.1 mmol/L (0.4-2.0)
[2023-11-08] MEDS: Sodium Chloride 0.9% 500 ML IV SCH ×2 (04:48→05:53)
[2023-11-08] MEDS ORDERED: Morphine 2 MG/ML SYRINGE IVPUSH ONE (04:55)
[2023-11-08] MEDS ORDERED: Iopamidol 755 MG/ML 500 ML Multipack Bottle IVPUSH ONE (05:06)
[2023-11-08] MEDS ORDERED: Naloxone 0.4 MG/ML SDV IVPUSH PRN (05:45)
[2023-11-08] MEDS ORDERED: HYDROmorphone 1 MG/ML Syringe IVPUSH ONE (05:45)
[2023-11-08] MEDS ORDERED: Sodium Chloride 0.9% 1,000 ML IV STA (08:02)
[2023-11-08] MEDS: HYDROmorphone 1 MG/ML Syringe IVPUSH PRN ×3 (08:26→19:32)
[2023-11-08] MEDS: Ondansetron 4 MG/2 ML SDV IVPUSH PRN ×2 (14:28→19:26)
[2023-11-08] MEDS ORDERED: Sodium Chloride 0.9% 1,000 ML IV ONE (16:14)
[2023-11-09] MEDS ORDERED: Dextrose 5%-0.9% NaCl 1,000 ML IV SCH (00:30)
[2023-11-09] MEDS: HYDROmorphone 1 MG/ML Syringe IVPUSH PRN (08:09)
[2023-11-09] MEDS: Ondansetron 4 MG/2 ML SDV IVPUSH PRN (08:09)
[2023-11-09] MEDS ORDERED: Sodium Chloride 0.9% 1,000 ML IV SCH (08:45)
[2023-11-09 08:53] LABS: BASOPHILS ABSOLUTE AUTO 0.01 K/uL (0.00-0.20); BASOPHILS PERCENT AUTO 0.1 % (0.0-1.0); EOSINOPHILS ABSOLUTE AUTO 0.11 K/uL (0.00-0.45); EOSINOPHILS PERCENT AUTO 1.6 % (0.0-6.0); HEMATOCRIT 32.2 % (37.0-47.0); HEMOGLOBIN 10.6 g/dL (12.0-16.0); IMMATURE GRAN ABSOLUTE AUTO 0.02 K/uL (0.00-0.05); IMMATURE GRAN PERCENT AUTO 0.3 % (0.0-0.4); LYMPHOCYTES ABSOLUTE AUTO 1.63 K/uL (1.00-4.80); LYMPHOCYTES PERCENT AUTO 24.3 % (24.0-44.0); MEAN CORPUSCULAR HEMOGLOBIN 26.4 pg (28.0-32.0); MEAN CORPUSCULAR HGB CONC 32.9 g/dL (32.0-36.0); MEAN CORPUSCULAR VOLUME 80.1 fL (83.0-99.0); MONOCYTES ABSOLUTE AUTO 0.57 K/uL (0.00-0.80); MONOCYTES PERCENT AUTO 8.5 % (0.0-8.0); NEUTROPHILS ABSOLUTE AUTO 4.36 K/uL (1.80-7.70); NEUTROPHILS PERCENT AUTO 65.2 % (41.0-71.0); PLATELET COUNT,PLT 256 K/uL (150-400); RED BLOOD CELL COUNT 4.02 M/uL (4.10-5.30)
[2023-11-09 09:04] LABS: A/G RATIO 0.9 (0.9-1.6); ALBUMIN 2.9 g/dL (3.4-5.0); BILIRUBIN TOTAL 0.3 mg/dL (0.2-1.0); CALCIUM 7.9 mg/dL (8.5-10.1); CARBON DIOXIDE,CO2 26.8 mmol/L (21.0-32.0); CREATININE 0.6 mg/dL (0.6-1.0); EST CRCL DRUG DOSING (CG) 116.68 mL/min; POTASSIUM,K 3.9 mmol/L (3.5-5.1); PROTEIN TOTAL,TP 6.3 g/dL (6.4-8.2)
[2023-11-09] MEDS ORDERED: Iopamidol 755 MG/ML 500 ML Multipack Bottle IVPUSH STA (10:34)
[2023-11-09] MEDS ORDERED: Polyethylene Glycol 3350 Powder 17 GM Packet PO ONE (12:32)
[2023-11-09 19:45] VITALS: BP 137/76; PULSE 61
== END 2023-11-09 15:24 | disposition home or self-care (01) ==
LOC: MW.ED 03:58
DX: K59.00 Constipation, unspecified (principal); Z91.040 Latex allergy status
CPT/HCPCS: 36415; 74174; 74177; 80053; 82947; 83605; 83690; 84703; 85025; 99284; A9270; J1170; J2270; J2405; J3490; J7030; J7040; J7042; Q9967

== ENCOUNTER 2023-11-21 16:32 | Emergency (ER) | payer BC ==
[2023-11-21] MEDS ORDERED: Sodium Chloride 0.9% 2.5 ML Syringe FLUSH PRN (16:45)
[2023-11-21] MEDS ORDERED: Sodium Chloride 0.9% 10 ML Syringe FLUSH PRN (16:45)
[2023-11-21 17:25] LABS: BASOPHILS ABSOLUTE AUTO 0.05 K/uL (0.00-0.20); BASOPHILS PERCENT AUTO 0.3 % (0.0-1.0); EOSINOPHILS ABSOLUTE AUTO 0.17 K/uL (0.00-0.45); EOSINOPHILS PERCENT AUTO 0.9 % (0.0-6.0); HEMATOCRIT 35.4 % (37.0-47.0); HEMOGLOBIN 11.6 g/dL (12.0-16.0); IMMATURE GRAN ABSOLUTE AUTO 0.21 K/uL (0.00-0.05); IMMATURE GRAN PERCENT AUTO 1.2 % (0.0-0.4); LYMPHOCYTES ABSOLUTE AUTO 1.65 K/uL (1.00-4.80); LYMPHOCYTES PERCENT AUTO 9.1 % (24.0-44.0); MEAN CORPUSCULAR HGB CONC 32.8 g/dL (32.0-36.0); MEAN CORPUSCULAR VOLUME 79.2 fL (83.0-99.0); MEAN PLATELET VOLUME 8.2 fL (9.4-12.3); MONOCYTES ABSOLUTE AUTO 0.91 K/uL (0.00-0.80); NEUTROPHILS PERCENT AUTO 83.5 % (41.0-71.0); RED BLOOD CELL COUNT 4.47 M/uL (4.10-5.30); WHITE BLOOD CELL COUNT,WBC 18.19 K/uL (3.9-11.3)
[2023-11-21 17:37] LABS: INR 1.05 (0.86-1.11)
[2023-11-21 17:47] LABS: A/G RATIO 0.4 (0.9-1.6); ALANINE AMINOTRANSFERASE,ALT 92 IU/L (14-63); ALBUMIN 2.5 g/dL (3.4-5.0); ALKALINE PHOSPHATASE 95 U/L (46-116); ASPARTATE AMNIOTRANSFERASE,AST 53 IU/L (15-37); BILIRUBIN TOTAL 0.2 mg/dL (0.2-1.0); BLOOD UREA NITROGEN,BUN 6 mg/dL (7.0-18.0); CARBON DIOXIDE,CO2 27.2 mmol/L (21.0-32.0); CHLORIDE,CL 97 mmol/L (98-107); CREATININE 0.5 mg/dL (0.6-1.0); EST CRCL DRUG DOSING (CG) 140.01 mL/min; GLUCOSE RANDOM 103 mg/dL (74-106); LACTIC ACID 0.8 mmol/L (0.4-2.0); LIPASE 45 U/L (16-77); PLATELET COUNT,PLT 674 K/uL (150-400); POTASSIUM,K 3.9 mmol/L (3.5-5.1); PROTEIN TOTAL,TP 8.2 g/dL (6.4-8.2); SODIUM,NA 136 mmol/L (136-145)
[2023-11-21 17:50] LABS: ESTIMATED GFR 122 mL/min (>60)
[2023-11-21] MEDS ORDERED: Piperacillin/Tazobactam 3.375 GM in Sodium Chloride 0.9% 100 ML IV ONE (18:06)
[2023-11-21] MEDS ORDERED: VANCOmycin 1.75 GM/350 ML 1.75 GM in Premix Bag 1 BAG IV ONE (18:30)
[2023-11-21] MEDS ORDERED: Sodium Chloride 0.9% 1,000 ML IV ONE ×2 (18:32→18:35)
[2023-11-21] MEDS ORDERED: Acetaminophen 500 MG Tab PO ONE (18:36)
[2023-11-21 18:37] LABS: APPEARANCE,URINE CLEAR; BILIRUBIN,URINE NEGATIVE (NEGATIVE); COLOR,URINE YELLOW; GLUCOSE,URINE NEGATIVE (NEGATIVE); KETONES,URINE >=80 mg/dL (NEGATIVE); LEUKOCYTE ESTERASE,URINE NEGATIVE (NEGATIVE); NITRITE,URINE NEGATIVE (NEGATIVE); OCCULT BLOOD,URINE NEGATIVE (NEGATIVE); PROTEIN,URINE NEGATIVE (NEGATIVE); UROBILINOGEN,URINE 0.2 EU/dL (<2.0)
[2023-11-21] MEDS ORDERED: Iopamidol 755 MG/ML 500 ML Multipack Bottle IVPUSH STA ×2 (18:49→21:16)
[2023-11-21] MEDS ORDERED: HYDROmorphone 1 MG/ML Syringe IVPUSH ONE ×2 (20:51→23:54)
[2023-11-22] MEDS ORDERED: Piperacillin/Tazobactam 3.375 GM in Sodium Chloride 0.9% 100 ML IV ONE (00:53)
[2023-11-22] MEDS ORDERED: Sodium Chloride 0.9% 1,000 ML IV ONE (01:20)
[2023-11-22] MEDS ORDERED: HYDROmorphone 1 MG/ML Syringe IVPUSH STA ×2 (02:24→04:38)
[2023-11-22 03:42] VITALS: BP 109/70; PULSE 93
[2023-11-22] MEDS ORDERED: HYDROmorphone 1 MG/ML Syringe ONE (04:38)
[2023-11-22] MEDS ORDERED: VANCOmycin 1.25 GM/250 ML 250 ML IV SCH (08:30)
== END 2023-11-22 04:48 ==
LOC: MW.ED 16:32
DX: K66.9 Disorder of peritoneum, unspecified (principal); K65.1 Peritoneal abscess; J90 Pleural effusion, not elsewhere classified; R50.9 Fever, unspecified; Z91.040 Latex allergy status; Z90.710 Acquired absence of both cervix and uterus; R05.9 Cough, unspecified; Z87.19 Personal history of other diseases of the digestive system; Z98.890 Other specified postprocedural states; Z53.8 Procedure and treatment not carried out for other reasons
CPT/HCPCS: 36415; 71045; 71275; 74177; 80053; 81003; 83605; 83690; 84484; 85025; 85610; 87040; 87635; 93005; 96361; 96365; 96366; 96367; 96375; 96376; 99291; A9270; J1170; J2543; J3370; J3490; J7030; Q9967; U0002

== ENCOUNTER 2023-12-02 10:42 | Emergency (ER) | payer BC ==
[2023-12-02] MEDS ORDERED: Sodium Chloride 0.9% 1,000 ML IV ONE (10:55)
[2023-12-02 11:13] LABS: BASOPHILS ABSOLUTE AUTO 0.06 K/uL (0.00-0.20); BASOPHILS PERCENT AUTO 0.5 % (0.0-1.0); EOSINOPHILS ABSOLUTE AUTO 0.13 K/uL (0.00-0.45); EOSINOPHILS PERCENT AUTO 1.2 % (0.0-6.0); HEMATOCRIT 37.3 % (37.0-47.0); HEMOGLOBIN 12.3 g/dL (12.0-16.0); IMMATURE GRAN ABSOLUTE AUTO 0.11 K/uL (0.00-0.05); LYMPHOCYTES ABSOLUTE AUTO 1.82 K/uL (1.00-4.80); LYMPHOCYTES PERCENT AUTO 16.6 % (24.0-44.0); MEAN CORPUSCULAR HEMOGLOBIN 25.7 pg (28.0-32.0); MEAN PLATELET VOLUME 7.9 fL (9.4-12.3); MONOCYTES PERCENT AUTO 5.5 % (0.0-8.0); NEUTROPHILS ABSOLUTE AUTO 8.27 K/uL (1.80-7.70); NEUTROPHILS PERCENT AUTO 75.2 % (41.0-71.0); PLATELET COUNT,PLT 813 K/uL (150-400); RED BLOOD CELL COUNT 4.78 M/uL (4.10-5.30); WHITE BLOOD CELL COUNT,WBC 10.99 K/uL (3.9-11.3)
[2023-12-02 11:26] LABS: INR 1.18 (0.86-1.11); PTT,PARTIAL THROMBOPLSTIN TIME 31.5 SEC (23.9-30.7)
[2023-12-02 11:29] LABS: A/G RATIO 0.5 (0.9-1.6); ALBUMIN 2.9 g/dL (3.4-5.0); BILIRUBIN TOTAL 0.2 mg/dL (0.2-1.0); CALCIUM 9.5 mg/dL (8.5-10.1); CARBON DIOXIDE,CO2 21.2 mmol/L (21.0-32.0); CREATININE 0.7 mg/dL (0.6-1.0); EST CRCL DRUG DOSING (CG) 100.01 mL/min; POTASSIUM,K 4.7 mmol/L (3.5-5.1); PROTEIN TOTAL,TP 9.3 g/dL (6.4-8.2)
[2023-12-02 11:31] LABS: LACTIC ACID 1.1 mmol/L (0.4-2.0)
[2023-12-02] MEDS ORDERED: Iopamidol 755 MG/ML 500 ML Multipack Bottle IVPUSH STA (12:03)
[2023-12-02] MEDS ORDERED: Magnesium Citrate Solution 296 ML Bottle PO ONE (12:08)
[2023-12-02 14:45] VITALS: BP 102/79; PULSE 84
== END 2023-12-02 14:44 | disposition home or self-care (01) ==
LOC: MW.ED 10:42
DX: J90 Pleural effusion, not elsewhere classified (principal); Z91.040 Latex allergy status; Z90.710 Acquired absence of both cervix and uterus
CPT/HCPCS: 36415; 71260; 74177; 80053; 83605; 83735; 84703; 85025; 85610; 85730; 99285; J7030; Q9967; 99284

== ENCOUNTER 2023-12-28 22:05 | Emergency (ER) | payer BC ==
[2023-12-28] MEDS: Sodium Chloride 0.9% 1,000 ML IV ONE (22:28)
[2023-12-28] MEDS: HYDROmorphone 1 MG/ML Syringe IVPUSH ONE ×2 (22:30→23:32)
[2023-12-28 22:35] LABS: BASOPHILS ABSOLUTE AUTO 0.03 K/uL (0.00-0.20); BASOPHILS PERCENT AUTO 0.3 % (0.0-1.0); EOSINOPHILS ABSOLUTE AUTO 0.09 K/uL (0.00-0.45); EOSINOPHILS PERCENT AUTO 0.9 % (0.0-6.0); HEMATOCRIT 33.7 % (37.0-47.0); HEMOGLOBIN 11.2 g/dL (12.0-16.0); IMMATURE GRAN ABSOLUTE AUTO 0.03 K/uL (0.00-0.05); IMMATURE GRAN PERCENT AUTO 0.3 % (0.0-0.4); LYMPHOCYTES ABSOLUTE AUTO 2.68 K/uL (1.00-4.80); LYMPHOCYTES PERCENT AUTO 28.2 % (24.0-44.0); MEAN CORPUSCULAR HGB CONC 33.2 g/dL (32.0-36.0); MEAN CORPUSCULAR VOLUME 81.2 fL (83.0-99.0); MEAN PLATELET VOLUME 8.6 fL (9.4-12.3); MONOCYTES ABSOLUTE AUTO 0.66 K/uL (0.00-0.80); MONOCYTES PERCENT AUTO 6.9 % (0.0-8.0); NEUTROPHILS ABSOLUTE AUTO 6.03 K/uL (1.80-7.70); NEUTROPHILS PERCENT AUTO 63.4 % (41.0-71.0); PLATELET COUNT,PLT 332 K/uL (150-400); RED BLOOD CELL COUNT 4.15 M/uL (4.10-5.30); WHITE BLOOD CELL COUNT,WBC 9.52 K/uL (3.9-11.3)
[2023-12-28 23:24] LABS: A/G RATIO 0.8 (0.9-1.6); ALANINE AMINOTRANSFERASE,ALT 24 IU/L (14-63); ALBUMIN 3.3 g/dL (3.4-5.0); ALKALINE PHOSPHATASE 72 U/L (46-116); ASPARTATE AMNIOTRANSFERASE,AST 19 IU/L (15-37); BILIRUBIN TOTAL 0.2 mg/dL (0.2-1.0); BLOOD UREA NITROGEN,BUN 11 mg/dL (7.0-18.0); CALCIUM 8.6 mg/dL (8.5-10.1); CARBON DIOXIDE,CO2 22.2 mmol/L (21.0-32.0); CHLORIDE,CL 104 mmol/L (98-107); CREATININE 0.7 mg/dL (0.6-1.0); EST CRCL DRUG DOSING (CG) 100.01 mL/min; GLUCOSE RANDOM 104 mg/dL (74-106); LIPASE 32 U/L (16-77); POTASSIUM,K 4.3 mmol/L (3.5-5.1); PROTEIN TOTAL,TP 7.5 g/dL (6.4-8.2); SODIUM,NA 138 mmol/L (136-145)
[2023-12-28 23:25] LABS: ESTIMATED GFR 112 mL/min (>60)
[2023-12-28 23:37] VITALS: PULSE 77
[2023-12-29 01:11] VITALS: BP 118/80
== END 2023-12-29 01:37 ==
LOC: MW.ED 22:05
DX: R10.31 Right lower quadrant pain (principal); Z91.041 Radiographic dye allergy status; Z90.49 Acquired absence of other specified parts of digestive tract; Z90.710 Acquired absence of both cervix and uterus
CPT/HCPCS: 36415; 71045; 80053; 83690; 83735; 84484; 85025; 96361; 96374; 96376; 99285; J1170; J7030; 93010

== ENCOUNTER 2024-02-11 13:15 | Emergency (ER) | payer BC ==
[2024-02-11 14:07] LABS: BASOPHILS ABSOLUTE AUTO 0.02 K/uL (0.00-0.20); BASOPHILS PERCENT AUTO 0.4 % (0.0-1.0); EOSINOPHILS ABSOLUTE AUTO 0.08 K/uL (0.00-0.45); EOSINOPHILS PERCENT AUTO 1.4 % (0.0-6.0); HEMATOCRIT 35.4 % (37.0-47.0); HEMOGLOBIN 11.8 g/dL (12.0-16.0); LYMPHOCYTES ABSOLUTE AUTO 2.21 K/uL (1.00-4.80); LYMPHOCYTES PERCENT AUTO 39.3 % (24.0-44.0); MEAN CORPUSCULAR HEMOGLOBIN 27.4 pg (28.0-32.0); MEAN CORPUSCULAR HGB CONC 33.3 g/dL (32.0-36.0); MEAN CORPUSCULAR VOLUME 82.1 fL (83.0-99.0); MEAN PLATELET VOLUME 8.5 fL (9.4-12.3); MONOCYTES ABSOLUTE AUTO 0.42 K/uL (0.00-0.80); MONOCYTES PERCENT AUTO 7.5 % (0.0-8.0); NEUTROPHILS ABSOLUTE AUTO 2.89 K/uL (1.80-7.70); NEUTROPHILS PERCENT AUTO 51.4 % (41.0-71.0); PLATELET COUNT,PLT 272 K/uL (150-400); RED BLOOD CELL COUNT 4.31 M/uL (4.10-5.30); WHITE BLOOD CELL COUNT,WBC 5.62 K/uL (3.9-11.3)
[2024-02-11] MEDS: Sodium Chloride 0.9% 1,000 ML IV ONE (14:17)
[2024-02-11] MEDS: Ampicillin/Sulbactam Na 3 GM in Sodium Chloride 0.9% 100 ML IV ONE (14:18)
[2024-02-11] MEDS: Ketorolac 30 MG/ML SDV IVPUSH ONE (14:18)
[2024-02-11] MEDS: Dexamethasone 10 MG/ML SDV IVPUSH ONE (14:18)
[2024-02-11 14:26] LABS: A/G RATIO 0.9 (0.9-1.6); ALBUMIN 3.5 g/dL (3.4-5.0); BILIRUBIN TOTAL 0.3 mg/dL (0.2-1.0); CALCIUM 8.9 mg/dL (8.5-10.1); CARBON DIOXIDE,CO2 26.5 mmol/L (21.0-32.0); CREATININE 0.6 mg/dL (0.6-1.0); EST CRCL DRUG DOSING (CG) 115.51 mL/min; POTASSIUM,K 3.9 mmol/L (3.5-5.1); PROTEIN TOTAL,TP 7.5 g/dL (6.4-8.2)
[2024-02-11 14:29] LABS: LACTIC ACID 1.4 mmol/L (0.4-2.0)
[2024-02-11] MEDS: Amoxicillin/Clavulanate K 875-125 MG Tab PO ONE (16:20)
[2024-02-11 16:26] VITALS: BP 115/70; PULSE 91
[2024-02-11] MEDS: Iopamidol 755 Mg/ML 100 ML Bottle IVPUSH ONE (16:50)
== END 2024-02-11 16:25 | disposition home or self-care (01) ==
LOC: MW.ED 13:15
DX: K11.20 Sialoadenitis, unspecified (principal); K11.9 Disease of salivary gland, unspecified; Z91.040 Latex allergy status; Z86.19 Personal history of other infectious and parasitic diseases; Z90.49 Acquired absence of other specified parts of digestive tract; Z90.710 Acquired absence of both cervix and uterus; Z75.8 Other problems related to medical facilities and other health care
CPT/HCPCS: 36415; 70491; 80053; 83605; 85025; 87040; 87651; 96365; 96375; 99284; A9270; J0295; J1100; J1885; J3490; J7030; Q9967

== ENCOUNTER 2024-03-17 19:40 | Emergency (ER) | payer BC ==
[2024-03-17] MEDS: Ondansetron 4 MG/2 ML SDV IVPUSH STA (20:12)
[2024-03-17] MEDS: Sodium Chloride 0.9% 1,000 ML IV STA (20:12)
[2024-03-17] MEDS: HYDROmorphone 1 MG/ML Syringe IVPUSH STA ×3 (20:12→21:38)
[2024-03-17 20:13] LABS: BASOPHILS ABSOLUTE AUTO 0.04 K/uL (0.00-0.20); BASOPHILS PERCENT AUTO 0.5 % (0.0-1.0); EOSINOPHILS ABSOLUTE AUTO 0.08 K/uL (0.00-0.45); EOSINOPHILS PERCENT AUTO 0.9 % (0.0-6.0); HEMATOCRIT 37.5 % (37.0-47.0); HEMOGLOBIN 12.3 g/dL (12.0-16.0); IMMATURE GRAN ABSOLUTE AUTO 0.03 K/uL (0.00-0.05); IMMATURE GRAN PERCENT AUTO 0.3 % (0.0-0.4); LYMPHOCYTES PERCENT AUTO 37.8 % (24.0-44.0); MEAN CORPUSCULAR HEMOGLOBIN 27.4 pg (28.0-32.0); MEAN CORPUSCULAR HGB CONC 32.8 g/dL (32.0-36.0); MEAN CORPUSCULAR VOLUME 83.5 fL (83.0-99.0); MEAN PLATELET VOLUME 8.5 fL (9.4-12.3); MONOCYTES ABSOLUTE AUTO 0.72 K/uL (0.00-0.80); MONOCYTES PERCENT AUTO 8.2 % (0.0-8.0); NEUTROPHILS ABSOLUTE AUTO 4.57 K/uL (1.80-7.70); NEUTROPHILS PERCENT AUTO 52.3 % (41.0-71.0); PLATELET COUNT,PLT 373 K/uL (150-400); RED BLOOD CELL COUNT 4.49 M/uL (4.10-5.30); WHITE BLOOD CELL COUNT,WBC 8.74 K/uL (3.9-11.3)
[2024-03-17 20:32] LABS: INR < 0.93 (0.86-1.11); PTT,PARTIAL THROMBOPLSTIN TIME 24.6 SEC (23.9-30.7)
[2024-03-17 20:39] LABS: A/G RATIO 0.9 (0.9-1.6); ALANINE AMINOTRANSFERASE,ALT 20 IU/L (14-63); ALBUMIN 3.9 g/dL (3.4-5.0); ALKALINE PHOSPHATASE 77 U/L (46-116); ASPARTATE AMNIOTRANSFERASE,AST 20 IU/L (15-37); BILIRUBIN TOTAL 0.2 mg/dL (0.2-1.0); BLOOD UREA NITROGEN,BUN 9 mg/dL (7.0-18.0); CALCIUM 8.7 mg/dL (8.5-10.1); CARBON DIOXIDE,CO2 24.6 mmol/L (21.0-32.0); CHLORIDE,CL 101 mmol/L (98-107); CREATININE 0.7 mg/dL (0.6-1.0); GLUCOSE RANDOM 90 mg/dL (74-106); LIPASE 30 U/L (16-77); POTASSIUM,K 3.9 mmol/L (3.5-5.1); PROTEIN TOTAL,TP 8.3 g/dL (6.4-8.2); SODIUM,NA 138 mmol/L (136-145)
[2024-03-17 20:43] LABS: LACTIC ACID 1.2 mmol/L (0.4-2.0)
[2024-03-17 20:44] LABS: ESTIMATED GFR 111 mL/min (>60)
[2024-03-17 22:05] VITALS: BP 114/79; PULSE 75
== END 2024-03-17 22:04 | disposition home or self-care (01) ==
LOC: MW.ED 19:40
DX: R10.31 Right lower quadrant pain (principal); Z75.8 Other problems related to medical facilities and other health care; Z91.040 Latex allergy status; Z79.899 Other long term (current) drug therapy; Z90.49 Acquired absence of other specified parts of digestive tract; Z90.710 Acquired absence of both cervix and uterus
CPT/HCPCS: 36415; 80053; 83605; 83690; 83735; 84703; 85025; 85610; 85730; 96361; 96374; 96375; 96376; 99284; J1170; J2405; J7030

== ENCOUNTER 2024-03-18 10:24 | Emergency (ER) | payer BC ==
[2024-03-18] MEDS: Morphine 4 MG/ML Syringe IVPUSH ONE (12:06)
[2024-03-18] MEDS: Sodium Chloride 0.9% 1,000 ML IV ONE (12:06)
[2024-03-18] MEDS: Ondansetron 4 MG/2 ML SDV IVPUSH ONE (12:06)
[2024-03-18 15:09] VITALS: BP 119/71; PULSE 63
== END 2024-03-18 15:47 ==
LOC: MW.ED 10:24
DX: K65.1 Peritoneal abscess (principal); Z91.040 Latex allergy status; Z79.899 Other long term (current) drug therapy; Z90.49 Acquired absence of other specified parts of digestive tract; Z90.710 Acquired absence of both cervix and uterus
CPT/HCPCS: 96374; 96375; 99285; J2270; J2405; J7030

== ENCOUNTER 2024-08-15 12:31 | Emergency (ER) | payer BC ==
[2024-08-15 14:22] LABS: BASOPHILS ABSOLUTE AUTO 0.03 K/uL (0.00-0.20); BASOPHILS PERCENT AUTO 0.4 % (0.0-1.0); EOSINOPHILS ABSOLUTE AUTO 0.06 K/uL (0.00-0.45); EOSINOPHILS PERCENT AUTO 0.9 % (0.0-6.0); HEMOGLOBIN 9.1 g/dL (12.0-16.0); IMMATURE GRAN ABSOLUTE AUTO 0.02 K/uL (0.00-0.05); IMMATURE GRAN PERCENT AUTO 0.3 % (0.0-0.4); LYMPHOCYTES PERCENT AUTO 27.6 % (24.0-44.0); MEAN CORPUSCULAR HEMOGLOBIN 26.4 pg (28.0-32.0); MEAN CORPUSCULAR HGB CONC 32.5 g/dL (32.0-36.0); MEAN CORPUSCULAR VOLUME 81.2 fL (83.0-99.0); MEAN PLATELET VOLUME 8.5 fL (9.4-12.3); MONOCYTES ABSOLUTE AUTO 0.62 K/uL (0.00-0.80); NEUTROPHILS ABSOLUTE AUTO 4.26 K/uL (1.80-7.70); NEUTROPHILS PERCENT AUTO 61.8 % (41.0-71.0); PLATELET COUNT,PLT 356 K/uL (150-400); RED BLOOD CELL COUNT 3.45 M/uL (4.10-5.30); WHITE BLOOD CELL COUNT,WBC 6.89 K/uL (3.9-11.3)
[2024-08-15] MEDS: Sodium Chloride 0.9% 1,000 ML IV ONE (14:22)
[2024-08-15] MEDS: Famotidine 20 MG/2 ML SDV IVPUSH ONE (14:23)
[2024-08-15] MEDS: Morphine 4 MG/ML Syringe IVPUSH ONE (14:23)
[2024-08-15] MEDS: Ondansetron 4 MG/2 ML SDV IVPUSH ONE (14:23)
[2024-08-15] MEDS: Sodium Chloride 0.9% 2.5 ML Syringe FLUSH PRN (14:23)
[2024-08-15] MEDS: Sodium Chloride 0.9% 10 ML Syringe FLUSH PRN (14:23)
[2024-08-15 14:53] LABS: A/G RATIO 0.9 (0.9-1.6); ALANINE AMINOTRANSFERASE,ALT 23 IU/L (14-63); ALBUMIN 3.8 g/dL (3.4-5.0); ALKALINE PHOSPHATASE 71 U/L (46-116); ASPARTATE AMNIOTRANSFERASE,AST 24 IU/L (15-37); BILIRUBIN TOTAL 0.2 mg/dL (0.2-1.0); BLOOD UREA NITROGEN,BUN 15 mg/dL (7.0-18.0); CALCIUM 8.8 mg/dL (8.5-10.1); CARBON DIOXIDE,CO2 25.7 mmol/L (21.0-32.0); CHLORIDE,CL 104 mmol/L (98-107); CREATININE 0.5 mg/dL (0.6-1.0); GLUCOSE RANDOM 91 mg/dL (74-106); LIPASE 33 U/L (16-77); POTASSIUM,K 3.9 mmol/L (3.5-5.1); PROTEIN TOTAL,TP 7.9 g/dL (6.4-8.2); SODIUM,NA 138 mmol/L (136-145)
[2024-08-15 15:04] LABS: ESTIMATED GFR 121 mL/min (>60)
[2024-08-15] MEDS: Iopamidol 755 Mg/ML 100 ML Bottle IVPUSH ONE (15:33)
[2024-08-15] MEDS: HYDROmorphone 1 MG/ML Syringe IVPUSH ONE ×2 (15:34→16:50)
[2024-08-15 18:06] VITALS: BP 105/47; PULSE 65
== END 2024-08-15 18:06 | disposition home or self-care (01) ==
LOC: MW.ED 12:31
DX: R10.31 Right lower quadrant pain (principal); R10.84 Generalized abdominal pain; Z79.899 Other long term (current) drug therapy; Z91.040 Latex allergy status
CPT/HCPCS: 36415; 74177; 80053; 83690; 84703; 85025; 96374; 96375; 96376; 99285; J2270; J2405; J3490; J7030; Q9967

== ENCOUNTER 2024-10-15 15:56 | Emergency (ER) | payer BC ==
[2024-10-15] MEDS ORDERED: Sodium Chloride 0.9% 2.5 ML Syringe FLUSH PRN (16:29)
[2024-10-15] MEDS ORDERED: Sodium Chloride 0.9% 10 ML Syringe FLUSH PRN (16:29)
[2024-10-15] MEDS: HYDROmorphone 1 MG/ML Syringe IVPUSH ONE (16:38)
[2024-10-15 16:50] LABS: BASOPHILS ABSOLUTE AUTO 0.05 K/uL (0.00-0.20); BASOPHILS PERCENT AUTO 0.7 % (0.0-1.0); EOSINOPHILS ABSOLUTE AUTO 0.12 K/uL (0.00-0.45); EOSINOPHILS PERCENT AUTO 1.8 % (0.0-6.0); HEMATOCRIT 29.8 % (37.0-47.0); HEMOGLOBIN 9.1 g/dL (12.0-16.0); IMMATURE GRAN ABSOLUTE AUTO 0.01 K/uL (0.00-0.05); IMMATURE GRAN PERCENT AUTO 0.1 % (0.0-0.4); LYMPHOCYTES ABSOLUTE AUTO 2.43 K/uL (1.00-4.80); LYMPHOCYTES PERCENT AUTO 35.9 % (24.0-44.0); MEAN CORPUSCULAR HGB CONC 30.5 g/dL (32.0-36.0); MEAN CORPUSCULAR VOLUME 72.2 fL (83.0-99.0); MEAN PLATELET VOLUME 9.1 fL (9.4-12.3); MONOCYTES ABSOLUTE AUTO 0.51 K/uL (0.00-0.80); MONOCYTES PERCENT AUTO 7.5 % (0.0-8.0); NEUTROPHILS ABSOLUTE AUTO 3.65 K/uL (1.80-7.70); PLATELET COUNT,PLT 412 K/uL (150-400); RED BLOOD CELL COUNT 4.13 M/uL (4.10-5.30); WHITE BLOOD CELL COUNT,WBC 6.77 K/uL (3.9-11.3)
[2024-10-15 17:04] LABS: A/G RATIO 0.9 (0.9-1.6); ALBUMIN 3.7 g/dL (3.4-5.0); BILIRUBIN TOTAL 0.2 mg/dL (0.2-1.0); CALCIUM 8.5 mg/dL (8.5-10.1); CARBON DIOXIDE,CO2 25.9 mmol/L (21.0-32.0); CREATININE 0.7 mg/dL (0.6-1.0); EST CRCL DRUG DOSING (CG) 99.01 mL/min; POTASSIUM,K 4.2 mmol/L (3.5-5.1); PROTEIN TOTAL,TP 7.8 g/dL (6.4-8.2)
[2024-10-15] MEDS: Iopamidol 755 MG/ML 500 ML Multipack Bottle IVPUSH STA (17:27)
[2024-10-15 18:26] VITALS: PULSE 77
[2024-10-15 19:19] VITALS: BP 124/83
== END 2024-10-15 19:18 | disposition home or self-care (01) ==
LOC: MW.ED 15:56
DX: K43.9 Ventral hernia without obstruction or gangrene (principal); Z90.49 Acquired absence of other specified parts of digestive tract; Z98.84 Bariatric surgery status; Z90.710 Acquired absence of both cervix and uterus; Z91.040 Latex allergy status; Z79.899 Other long term (current) drug therapy
CPT/HCPCS: 36415; 74177; 80053; 85025; 96374; 99284; J1171; Q9967